=== PATIENT | male | born 1990 | race Caucasian/White ===

== ENCOUNTER 2019-01-09 20:21 | Inpatient (IN) | payer BC, OTHER ==
[2019-01-09] MEDS ORDERED: Thiamine 100 MG in Sodium Chloride 0.9% 100 ML IV ONE (21:03)
--- NOTE | 2019-01-09 21:06 | EDM.PDOCBH ---
ED HPI GENERAL MEDICAL PROBLEM - General Chief Complaint: Drug or Alcohol Abuse Stated Complaint: TOO MUCH ALCOHOL Time Seen by Provider: 01/09/19 20:32 Source of Information: Reports: Patient, Family (), RN Notes Reviewed History Limitations: Reports: No Limitations - History of Present Illness INITIAL COMMENTS - FREE TEXT/NARRATIVE: The patient states that he is a heavy drinker, and would like to stop. He states that he has been drinking 2 fifths of hard alcohol (the equivalent of 34 drinks per day) daily for more than 1.5 years, including today. His last drink was around 19:45 this evening. He states that his last period of sobriety ended about 1.5 years ago, after being sober for about one year. He states that he has been to inpatient treatment twice, most recently about 4 years ago, for 6 months, remaining sober for about 3 months. He states that he has never gone to outpatient treatment. He states that he has never been hospitalized secondary to his alcohol use, and denies having any legal troubles. It is unclear if he has suffered social problems because of his drinking, but he states that he quit his job today, because he simply could not do it anymore - the patient performed maintenance. The patient states that he believes that he is having alcohol withdrawal symptoms, because he is feeling hot and cold, quivering, tachypneic, and generally weak. He states that he had nausea and emesis this morning, but he has been able to drink alcohol throughout the remainder of today. He states that he has not had a bowel movement in about 3 days. Here in the ED, the patient's BP is found to be elevated at 161/102, with a heart rate slightly elevated at 101, and a respiratory rate elevated at 28. His oxygen saturation is 100% on room air. The patient does not have a PCP. Generalized Pain Score (Numeric/FACES): 8 - Related Data Allergies Allergy/AdvReac Type Severity Reaction Status Date / Time No Known Allergies Allergy Verified 01/09/19 20:31 Home Meds: Home Meds . [No Known Home Meds] 01/09/19 [History] Past Medical History Genitourinary History: Reports: Renal Calculus Psychiatric History: Reports: Addiction (alcohol), Anxiety (untreated), Depression (untreated) Social & Family History - Tobacco Use Smoking Status *Q: Current Every Day Smoker Years of Tobacco use: 12 Packs/Tins Daily: 0.1 Packs/Tins Daily Comment: Down from 2 ppd - Caffeine Use Caffeine Use: Reports: Coffee - Alcohol Use Alcohol Use History: Yes Days Per Week of Alcohol Use: 7 Number of Drinks Per Day: 34 Total Drinks Per Week: 238 Date of Last Drink: 01/09/19 Time of Last Drink: 19:45 Alcohol Use Frequency: Daily - Recreational Drug Use Recreational Drug Use: Yes Drug Use in Last 12 Months: No Recreational Drug Type: Reports: Benzodiazepines (last used 2013), Heroin (last snorted Oct 2016), LSD (Acid) (last took before 2008), Marijuana/Hashish (last smoked Oct 2016), Methamphetamine (last snorted, smoked Nov 2016), Psilocybin ( Mushrooms) (last took before 2008), Other (see below) (Opioids - last used Nov 2016) - Living Situation & Occupation Living situation: Reports: , with Spouse, with Family (1 child) Occupation: Unemployed ED ROS GENERAL - Review of Systems Review Of Systems: ROS reveals no pertinent complaints other than HPI. ED EXAM, BEHAVIORAL HEALTH - Physical Exam Exam: See Below Exam Limited By: No Limitations General Appearance: Alert, WD/WN, No Apparent Distress Eye Exam: Bilateral Eye: EOMI, Normal Inspection Ears: Normal External Exam, Hearing Grossly Normal Nose: Normal Inspection Throat/Mouth: Normal Inspection, Normal Lips, Normal Voice, No Airway Compromise Head: Atraumatic, Normocephalic Neck: Normal Inspection, Full Range of Motion Respiratory/Chest: No Respiratory Distress, Lungs Clear, Normal Breath Sounds, No Accessory Muscle Use Cardiovascular: Normal Peripheral Pulses, No Edema, No Gallop, No JVD, No Murmur , No Rub, Tachycardia (regular) GI/Abdominal: Normal Bowel Sounds, Soft, Non-Tender, No Organomegaly, No Distention, No Abnormal Bruit, No Mass (Male) Exam: Deferred Rectal (Males) Exam: Deferred Back Exam: Normal Inspection, Full Range of Motion, NT Extremities: Normal Inspection, Normal Range of Motion, No Pedal Edema, Normal Capillary Refill Neurological: Alert, Normal Cognition, No Motor/Sensory Deficits, Oriented x 3 Psychiatric: Other (Anxious) Skin Exam: Warm, Intact, Normal color, No rash, Diaphoretic EKG INTERPRETATION EKG Date: 01/09/19 Time: 21:15 Rhythm: Other (Sinus tachycardia) Rate (Beats/Min): 100 [place]: Normal P-Wave: Enlarged (LAE) QRS: Normal ST-T: Normal QT: Prolonged (QTc 480 ms) Comparison: NA - No Prior EKG COURSE, BEHAVIORAL HEALTH COMP - Course Vital Signs: Last Vital Signs Temp 37.2 C 01/10/19 01:00 Pulse 106 H 01/10/19 01:00 Resp 22 H 01/10/19 01:00 BP 130/71 01/10/19 01:00 Pulse Ox 96 01/10/19 01:00 Orthostatic Blood Pressure [ 114/76 Standing] Orthostatic Blood Pressure [ 122/78 Sitting] Orthostatic Blood Pressure [ 127/68 Supine] Orders, Labs, Meds: Active Orders 24 hr Category Date Time Status Chest 2V [CR] Stat Exams 01/09/19 20:59 Taken Sodium Chloride 0.9% [Normal Saline] 1,000 ml Med 01/09/19 21:00 Active IV ASDIRECTED Medication Orders Albuterol/Ipratropium (Duoneb 3.0-0.5 Mg/3 Ml) 3 ml NEB Q4H PRN PRN Reason: Shortness Of Breath/wheezing Bisacodyl (Dulcolax) 5 mg PO DAILY PRN PRN Reason: Constipation Chlordiazepoxide HCl (Librium) 50 mg PO Q8H PRN PRN Reason: Withdrawal Symptoms Last Admin: 01/10/19 01:43 Dose: 50 mg Clonidine HCl (Catapres) 0.1 mg PO Q4H PRN PRN Reason: Agitation Docusate Sodium (Colace) 100 mg PO BID PRN PRN Reason: Constipation Famotidine (Pepcid) 20 mg PO Q12H SHANTAL Folic Acid (Folic Acid) 1 mg PO DAILY SHANTAL Stop: 01/12/19 09:01 Haloperidol Lactate (Haldol) 2 mg IM Q4H PRN PRN Reason: Agitation Hydralazine HCl (Apresoline) 20 mg IVPUSH Q4H PRN PRN Reason: Hypertension Hydromorphone HCl (Dilaudid) 0.25 mg IVPUSH Q2H PRN PRN Reason: Pain (severe 7-10) Last Admin: 01/10/19 02:38 Dose: 0.25 mg Sodium Chloride (Normal Saline) 1,000 mls @ 150 mls/hr IV ASDIRECTED [facility] Last Admin: 01/09/19 21:27 Dose: 150 mls/hr Lorazepam (Ativan) 2 mg IVPUSH Q4H PRN PRN Reason: Seizures Lorazepam (Ativan) 1 - 3 mg IVPUSH ASDIRECTED PRN; Protocol PRN Reason: Withdrawal Symptoms Last Admin: 01/10/19 02:39 Dose: 3 mg Admin: 01/10/19 02:18 Dose: 2 mg Metoprolol Tartrate (Lopressor) 5 mg IVPUSH Q4H PRN PRN Reason: Tachycardia Miscellaneous Information (Remove Patch) 1 ea TRDERM DAILY PRN PRN Reason: patch removal Multivitamins (Thera) 1 each PO DAILY [facility] Stop: 01/13/19 09:01 Nicotine (Habitrol) 21 mg TRDERM DAILY PRN PRN Reason: Nicotine Dependence Last Admin: 01/10/19 00:55 Dose: 21 mg Ondansetron HCl (Zofran) 4 mg IV Q6H PRN PRN Reason: Nausea/Vomiting Oxycodone HCl (Oxycodone) 5 mg PO Q4H PRN PRN Reason: Pain (moderate 4-6) Polyethylene Glycol (Miralax) 17 gm PO DAILY PRN PRN Reason: Constipation Potassium Chloride (Pharmacy To Dose - Potassium Replacement) 1 dose .XX ASDIRECTED [facility] Potassium Chloride (Klor-Con M20) 40 meq PO Q4H [facility] Stop: 01/10/19 05:01 Last Admin: 01/10/19 01:21 Dose: 40 meq Quetiapine Fumarate (Seroquel) 50 mg PO BEDTIME [facility] Senna/Docusate Sodium (Senna Plus) 1 tab PO BID PRN PRN Reason: Constipation Thiamine HCl (Vitamin B-1) 100 mg PO DAILY [facility] Stop: 01/13/19 09:01 Topiramate (Topamax) 25 mg PO BID [facility] Laboratory Tests 01/09/19 01/09/19 01/09/19 Range/Units 21:13 21:13 21:13 WBC 5.32 (4.23-9.07) K/mm3 RBC 4.97 (4.63-6.08) M/mm3 Hgb 15.9 (13.7-17.5) gm/L Hct 45.9 (40.1-51.0) % MCV 92.4 H (79.0-92.2) fl MCH 32.0 (25.7-32.2) pg MCHC 34.6 (32.2-35.5) g/dl RDW Std Deviation 42.8 (35.1-43.9) fL Plt Count 170 (163-337) K/mm3 MPV 8.2 L (9.4-12.3) fl Neutrophils % (Manual) 52 (40-60) % Band Neutrophils % 0 (0-10) % Lymphocytes % (Manual) 36 (20-40) % Atypical Lymphs % 0 % Monocytes % (Manual) 11 H (2-10) % Eosinophils % (Manual) 1 (0.8-7.0) % Basophils % (Manual) 0 L (0.2-1.2) Platelet Estimate Adequate RBC Morph Comment Normal Sodium 143 (136-145) mEq/L Potassium 3.4 L (3.5-5.1) mEq/L Chloride 102 (98-107) mEq/L Carbon Dioxide 18 L (21-32) mEq/L Anion Gap 26.4 H (5-15) BUN 11 (7-18) mg/dL Creatinine 1.1 (0.7-1.3) mg/dL Est Cr Clr Drug Dosing 117.52 mL/min Estimated GFR (MDRD) > 60 (>60) mL/min BUN/Creatinine Ratio 10.0 L (14-18) Glucose 88 (74-106) mg/dL Calcium 9.1 (8.5-10.1) mg/dL Magnesium 1.9 (1.8-2.4) mg/dl Total Bilirubin 0.6 (0.2-1.0) mg/dL AST 109 H (15-37) U/L ALT 113 H (16-63) U/L Alkaline Phosphatase 93 (46-116) U/L Total Protein 8.4 H (6.4-8.2) g/dl Albumin 4.3 (3.4-5.0) g/dl Globulin 4.1 gm/dL Albumin/Globulin Ratio 1.1 (1-2) TSH 3rd Generation 1.658 (0.358-3.74) uIU/mL Urine Color (Yellow) Urine Appearance (Clear) Urine pH (5.0-8.0) Ur Specific [place] (1.005-1.030) Urine Protein (Negative) Urine Glucose (UA) (Negative) Urine Ketones (Negative) Urine Occult Blood (Negative) Urine Nitrite (Negative) Urine Bilirubin (Negative) Urine Urobilinogen (0.2-1.0) Ur Leukocyte Esterase (Negative) Urine RBC (0-5) /hpf Urine WBC (0-5) /hpf Ur Epithelial Cells (0-5) /hpf Urine Bacteria (FEW) /hpf Urine Mucus (FEW) /hpf Salicylates 1.0 L (2.8-20) mg/dL Urine Opiates Screen (GJOMCG=862) Ur Buprenorphine Scrn (CUTOFF=10) Ur Oxycodone Screen (DGR7KA=092) Urine Methadone Screen (IOL0UB=293) Ur Propoxyphene Screen (CSSWAU=775) Acetaminophen 0 L (10-30) ug/mL Ur Barbiturates Screen (DEUSPQ=821) Ur Tricyclics Screen (OWMKSG=279) Ur Phencyclidine Scrn (CUTOFF=25) Ur Amphetamine Screen (IDKKWX=416) U Methamphetamines Scrn (OWRCAI=574) U Benzodiazepines Scrn (KLYDKZ=428) U Cocaine Metab Screen (QXRAEG=276) U Marijuana (THC) Screen (CUTOFF=50) Ethyl Alcohol 0.32 (0.00) gm% 01/09/19 01/09/19 Range/Units 22:50 22:50 WBC (4.23-9.07) K/mm3 RBC (4.63-6.08) M/mm3 Hgb (13.7-17.5) gm/L Hct (40.1-51.0) % MCV (79.0-92.2) fl MCH (25.7-32.2) pg MCHC (32.2-35.5) g/dl RDW Std Deviation (35.1-43.9) fL Plt Count (163-337) K/mm3 MPV (9.4-12.3) fl Neutrophils % (Manual) (40-60) % Band Neutrophils % (0-10) % Lymphocytes % (Manual) (20-40) % Atypical Lymphs % % Monocytes % (Manual) (2-10) % Eosinophils % (Manual) (0.8-7.0) % Basophils % (Manual) (0.2-1.2) Platelet Estimate RBC Morph Comment Sodium (136-145) mEq/L Potassium (3.5-5.1) mEq/L Chloride (98-107) mEq/L Carbon Dioxide (21-32) mEq/L Anion Gap (5-15) BUN (7-18) mg/dL Creatinine (0.7-1.3) mg/dL Est Cr Clr Drug Dosing mL/min Estimated GFR (MDRD) (>60) mL/min BUN/Creatinine Ratio (14-18) Glucose (74-106) mg/dL Calcium (8.5-10.1) mg/dL Magnesium (1.8-2.4) mg/dl Total Bilirubin (0.2-1.0) mg/dL AST (15-37) U/L ALT (16-63) U/L Alkaline Phosphatase (46-116) U/L Total Protein (6.4-8.2) g/dl Albumin (3.4-5.0) g/dl Globulin gm/dL Albumin/Globulin Ratio (1-2) TSH 3rd Generation (0.358-3.74) uIU/mL Urine Color Yellow (Yellow) Urine Appearance Slt cloudy H (Clear) Urine pH 6.5 (5.0-8.0) Ur Specific [place] 1.025 (1.005-1.030) Urine Protein 2+ H (Negative) Urine Glucose (UA) Negative (Negative) Urine Ketones 4+ H (Negative) Urine Occult Blood Negative (Negative) Urine Nitrite Negative (Negative) Urine Bilirubin 1+ H (Negative) Urine Urobilinogen 1.0 (0.2-1.0) Ur Leukocyte Esterase Negative (Negative) Urine RBC 0-5 (0-5) /hpf Urine WBC 0-5 (0-5) /hpf Ur Epithelial Cells 0-5 (0-5) /hpf Urine Bacteria Rare (FEW) /hpf Urine Mucus Many H (FEW) /hpf Salicylates (2.8-20) mg/dL Urine Opiates Screen Negative (IULFOP=818) Ur Buprenorphine Scrn Negative (CUTOFF=10) Ur Oxycodone Screen Negative (DDG8EU=473) Urine Methadone Screen Negative (VOQ3AG=816) Ur Propoxyphene Screen Negative (HPCJQN=601) Acetaminophen (10-30) ug/mL Ur Barbiturates Screen Negative (KKIVFQ=800) Ur Tricyclics Screen Negative (YEFPLZ=950) Ur Phencyclidine Scrn Negative (CUTOFF=25) Ur Amphetamine Screen Negative (MSEKIQ=299) U Methamphetamines Scrn Negative (CYOXZL=604) U Benzodiazepines Scrn Negative (DMRRYX=111) U Cocaine Metab Screen Negative (MLMDQV=761) U Marijuana (THC) Screen Negative (CUTOFF=50) Ethyl Alcohol (0.00) gm% Medications Generic Name Dose Route Start Last Admin Trade Name Freq PRN Reason Stop Dose Admin Albuterol/Ipratropium 3 ml 01/10/19 00:46 Duoneb 3.0-0.5 Mg/3 Ml NEB Q4H PRN Shortness Of Breath/wheezing Bisacodyl 5 mg 01/10/19 00:46 Dulcolax PO DAILY PRN Constipation Chlordiazepoxide HCl 50 mg 01/10/19 01:36 01/10/19 01:43 Librium PO 50 mg Q8H PRN Administration Withdrawal Symptoms Clonidine HCl 0.1 mg 01/10/19 00:51 Catapres PO Q4H PRN Agitation Docusate Sodium 100 mg 01/10/19 00:46 Colace PO BID PRN Constipation Famotidine 20 mg 01/10/19 09:00 Pepcid PO Q12H SHANTAL Folic Acid 1 mg 01/10/19 09:00 Folic Acid PO 01/12/19 09:01 DAILY SHANTAL Haloperidol Lactate 2 mg 01/10/19 00:51 Haldol IM Q4H PRN Agitation Hydralazine HCl 20 mg 01/10/19 00:44 Apresoline IVPUSH Q4H PRN Hypertension Hydromorphone HCl 0.25 mg 01/10/19 00:46 01/10/19 02:38 Dilaudid IVPUSH 0.25 mg Q2H PRN Administration Pain (severe 7-10) Sodium Chloride 1,000 mls @ 150 mls/hr 01/09/19 21:00 01/09/19 21:27 Normal Saline IV 150 mls/hr ASDIRECTED SHANTAL Administration Lorazepam 2 mg 01/10/19 00:44 Ativan IVPUSH Q4H PRN Seizures Lorazepam 1 - 3 mg 01/10/19 02:15 01/10/19 02:39 Ativan IVPUSH 3 mg ASDIRECTED PRN Administration Withdrawal Symptoms Protocol Metoprolol Tartrate 5 mg 01/10/19 00:44 Lopressor IVPUSH Q4H PRN Tachycardia Miscellaneous Information 1 ea 01/10/19 00:50 Remove Patch TRDERM DAILY PRN patch removal Multivitamins 1 each 01/10/19 09:00 Thera PO 01/13/19 09:01 DAILY SHANTAL Nicotine 21 mg 01/10/19 00:44 01/10/19 00:55 Habitrol TRDERM 21 mg DAILY PRN Administration Nicotine Dependence Ondansetron HCl 4 mg 01/10/19 00:46 Zofran IV Q6H PRN Nausea/Vomiting Oxycodone HCl 5 mg 01/10/19 00:46 Oxycodone PO Q4H PRN Pain (moderate 4-6) Polyethylene Glycol 17 gm 01/10/19 00:46 Miralax PO DAILY PRN Constipation Potassium Chloride 1 dose 01/10/19 00:45 Pharmacy To Dose - Potassium Replacement .XX ASDIRECTED SHANTAL Potassium Chloride 40 meq 01/10/19 01:00 01/10/19 01:21 Klor-Con M20 PO 01/10/19 05:01 40 meq Q4H SHANTAL Administration Quetiapine Fumarate 50 mg 01/11/19 21:00 Seroquel PO BEDTIME SHANTAL Senna/Docusate Sodium 1 tab 01/10/19 00:46 Senna Plus PO BID PRN Constipation Thiamine HCl 100 mg 01/10/19 09:00 Vitamin B-1 PO 01/13/19 09:01 DAILY SHANTAL Topiramate 25 mg 01/10/19 09:00 Topamax PO BID SHANTAL Discontinued Medications Generic Name Dose Route Start Last Admin Trade Name Freq PRN Reason Stop Dose Admin Chlordiazepoxide HCl 25 mg 01/10/19 00:51 Librium PO Q8H PRN Withdrawal Symptoms Diphenhydramine HCl 50 mg 01/10/19 01:35 01/10/19 01:45 Benadryl IVPUSH 01/10/19 01:36 50 mg ONETIME ONE Administration Diphenhydramine HCl 50 mg 01/10/19 02:17 01/10/19 02:22 Benadryl IVPUSH 01/10/19 02:18 50 mg ONETIME ONE Administration Thiamine HCl 100 mg/ Sodium 101 mls @ 202 mls/hr 01/09/19 21:03 01/09/19 21: 27 Chloride IV 01/09/19 21:04 202 mls/hr ONETIME ONE Administration Lorazepam 1 - 3 mg 01/10/19 00:44 01/10/19 00:56 Ativan IVPUSH 3 mg Q4H PRN Administration Withdrawal Symptoms Protocol Pantoprazole Sodium 40 mg 01/10/19 00:51 01/10/19 01:22 Protonix Iv IV 01/10/19 00:52 40 mg ONETIME ONE Administration Quetiapine Fumarate 25 mg 01/10/19 00:50 01/10/19 01:43 Seroquel PO 01/10/19 00:51 25 mg NOW STA Administration Quetiapine Fumarate 25 mg 01/10/19 01:37 01/10/19 01:43 Seroquel PO 01/10/19 01:38 25 mg ONETIME ONE Administration Quetiapine Fumarate 25 mg 01/10/19 01:49 01/10/19 01:43 Seroquel PO 01/10/19 01:50 25 mg ONETIME ONE Administration Topiramate 25 mg 01/10/19 00:49 01/10/19 01:21 Topamax PO 01/10/19 00:50 25 mg BEDTIME ONE Administration Medical Clearance: 01/09/19 21:03 Because the patient is a chronic daily alcoholic, he is at somewhat of an increased risk of developing DTs, although factors in his favor include no prior history of DTs or alcohol-related seizures, age under 30 years, and no comorbid condition, such as pneumonia, at least as far as we know at this time. Before I even discussed what we can and cannot do for the patient, I want to make sure that he is medically stable, therefore I have ordered orthostatics, an ECG, a baseline chest x-ray, blood work, and a urinalysis with urine drug screen. The patient will receive IV fluid and IV thiamine, to be modified as needed. The patient states that he is not currently nauseated, however, if he does develop nausea, we will treat that accordingly. 01/09/19 21:49 The patient is not orthostatic. 01/09/19 21:51 2-view chest radiograph appears to be grossly normal. The cardiac silhouette is within normal limits. No pulmonary vascular congestion. No pleural effusions. No focal infiltrate. No pneumothorax. Formal read per the Radiologist pending. 01/10/19 00:04 Test results discussed with the patient and his . The patient's alcohol level returned elevated at 0.32. His bicarbonate level is depressed at 18, with an anion gap of 26.4. The remainder of his workup was unremarkable. I recommended admission to the hospital to monitor for signs and symptoms of alcohol withdrawal, and treat accordingly. The patient agreed. Case discussed with Dr. Gonzales at 23:57. He asked that I call Dr. Benson for the admission. Case discussed with Dr. Benson at 23:59. Dr. Benson explained that he will be going off service in the morning, therefore it does not make sense for him to accept the patient tonight. He asked that I admit the patient to Dr. Gonzales. Case again discussed with Dr. Gonzales at 00:02. He accepted the patient for admission to the ICU. Departure - Departure Time of Disposition: 00:05 Disposition: Admitted As Inpatient 68 Condition: Fair Clinical Impression: Alcohol intoxication, Chronic alcohol use, High anion gap metabolic acidosis - Discharge Information *PRESCRIPTION DRUG MONITORING PROGRAM REVIEWED*: Not Applicable *COPY OF PRESCRIPTION DRUG MONITORING REPORT IN PATIENT NASRIN: Not Applicable - My Orders Last 24 Hours: My Active Orders 01/09/19 20:59 Chest 2V [CR] Stat 01/09/19 21:00 Sodium Chloride 0.9% [Normal Saline] 1,000 ml IV ASDIRECTED - Assessment/Plan Last 24 Hours: My Active Orders 01/09/19 20:59 Chest 2V [CR] Stat 01/09/19 21:00 Sodium Chloride 0.9% [Normal Saline] 1,000 ml IV ASDIRECTED
[2019-01-09] MEDS: Sodium Chloride 0.9% 1,000 ML IV SCH (21:27)
[2019-01-09 22:18] LABS: ACETAMINOPHEN 0 ug/mL (10-30)
[2019-01-10] MEDS ORDERED: LORazepam 2 MG/ML SDV IVPUSH PRN ×2 (00:44)
[2019-01-10] MEDS ORDERED: hydrALAZINE 20 MG/ML SDV IVPUSH PRN (00:44)
[2019-01-10] MEDS ORDERED: Bisacodyl 5 MG Tab PO PRN (00:46)
[2019-01-10] MEDS ORDERED: Polyethylene Glycol 3350 Powder 17 GM Packet PO PRN (00:46)
[2019-01-10] MEDS ORDERED: HYDROmorphone 1 MG/ML Syringe IVPUSH PRN (00:46)
[2019-01-10] MEDS ORDERED: Docusate Sodium 100 MG Cap PO PRN (00:46)
[2019-01-10] MEDS ORDERED: oxyCODONE 5 MG Tab PO PRN (00:46)
[2019-01-10] MEDS ORDERED: Ondansetron 4 MG/2 ML SDV IV PRN (00:46)
[2019-01-10] MEDS ORDERED: Albuterol/Ipratropium 3.0-0.5 MG/3 ML Neb Soln NEB PRN (00:46)
[2019-01-10] MEDS ORDERED: Topiramate 25 MG Tab PO ONE (00:49)
[2019-01-10] MEDS ORDERED: QUEtiapine 25 MG Tab PO STA (00:50)
[2019-01-10] MEDS ORDERED: chlordiazePOXIDE 25 MG Cap PO PRN (00:51)
[2019-01-10] MEDS ORDERED: Pantoprazole 40 MG Vial IV ONE (00:51)
[2019-01-10] MEDS ORDERED: Haloperidol Lactate 5 MG/ML SDV IM PRN (00:51)
[2019-01-10] MEDS: Nicotine 21 MG/24 Hr Patch TRDERM PRN (00:55)
[2019-01-10] MEDS ORDERED: Potassium Chloride 20 MEQ Tab.ER PO SCH (01:00)
[2019-01-10] MEDS ORDERED: diphenhydrAMINE 50 MG/ML SDV IVPUSH ONE ×2 (01:35→02:17)
[2019-01-10] MEDS ORDERED: QUEtiapine 25 MG Tab PO ONE ×3 (01:37→21:00)
--- NOTE | 2019-01-10 01:40 | PCM.HP ---
H&P History of Present Illness - General Date of Service: 01/10/19 Admit Problem/Dx: Admission Diagnosis/Problem Admission Diagnosis/Problem Chronic alcohol abuse Source of Information: Patient, Family, Old Records, Provider, RN Notes Reviewed History Limitations: Reports: Intoxication - History of Present Illness Initial Comments - Free Text/Narative: This is a 28 yo white male with past medical hx of ETOH Use/Dependence, Substance Abuse, Anxiety, Depression and Hx/o Renal Stone who comes in for alcohol detoxification. He reports feeling hot and cold, quivering, increased respiratory rate, reduced appetite, abdominal soreness, and generalized weakness. He also had nausea and emesis this morning. He reports no bowel movement in 3 days. Patient drinks about 1L of whiskey a day for about 1-2 years now. However he has been drinking more than usual due to job related issues and increased life stressors (did not specify it). His last drink was last evening. He denies having been to chemical inpatient treatment except for heroin abuse in 2007 at [facility] in [place]. At bedside during examination, he has obvious tremors and reports visual hallucinations. He also admits to having suicidal thought but did not mention his means or methods of carrying out his plans. His thinks he is severely depressed. His initial work up in ED shows a CBC remarkable for MCV of 92.4, MPV of 8.2, and Monocytes of 11%. His chemistry is significant for K of 3.4, CO2 of 18, AG of 26.4, AST of 109, ALT of 113, and Total Protein of 8.4. His UA is suggestive of UTI. His UDS is positive for Salicylates of 1. His ASHKAN is 0.32. Patient is being admitted for etoh withdrawal symptoms. He is DNR/DNI. Generalized Pain Score (Numeric/FACES): 8 - Related Data Allergies/Adverse Reactions: Allergies Allergy/AdvReac Type Severity Reaction Status Date / Time No Known Allergies Allergy Verified 01/09/19 20:31 Home Medications: Home Meds . [No Known Home Meds] 01/09/19 [History] Past Medical History - Past Health History Medical/Surgical History: Denies Medical/Surgical History Gastrointestinal History: Reports: GERD Other Gastrointestinal History: stomach ulcer Genitourinary History: Reports: Renal Calculus Psychiatric History: Reports: Addiction, Anxiety, Depression Social & Family History - Family History Family Medical History: Noncontributory - Tobacco Use Smoking Status *Q: Current Every Day Smoker Years of Tobacco use: 10 Packs/Tins Daily: 1 - Caffeine Use Caffeine Use: Reports: Coffee - Alcohol Use Days Per Week of Alcohol Use: 7 Number of Drinks Per Day: 32 Total Drinks Per Week: 224 Date of Last Drink: 01/09/19 Time of Last Drink: 19:30 - Recreational Drug Use Recreational Drug Use: Yes Drug Use in Last 12 Months: No Recreational Drug Type: Reports: Heroin, Methamphetamine Recreational Drug Last Use: 2.5 years ago - Living Situation & Occupation Living situation: Reports: , with Spouse, with Family (1 child) Occupation: Unemployed H&P Review of Systems - Review of Systems: Review Of Systems: See Below General: Denies: Fever, Chills, Fatigue HEENT: Reports: No Symptoms Pulmonary: Denies: Shortness of Breath Cardiovascular: Reports: Palpitations. Denies: Chest Pain Gastrointestinal: Reports: Decreased Appetite, Nausea, Vomiting, Other ( abdominal soreness). Denies: Abdominal Pain Genitourinary: Reports: No Symptoms Musculoskeletal: Reports: No Symptoms Skin: Denies: Cyanosis, Mottled, Diaphoresis, Bruising, Erythema Psychiatric: Reports: Depression, Anxiety, Suicidal Ideation, Hallucinations ( Visual). Denies: Confusion Neurological: Reports: Tremors, Difficulty Walking, Gait Disturbance. Denies: Dizziness, Numbness, Tingling Hematologic/Lymphatic: Reports: No Symptoms Exam - Exam Exam: See Below - Vital Signs Vital Signs: Last Vital Signs Temp 37.2 C 01/09/19 20:32 Pulse 101 H 01/09/19 20:32 Resp 28 H 01/09/19 20:32 BP 161/102 H 01/09/19 20:32 Pulse Ox 100 01/09/19 20:32 Orthostatic Blood Pressure [ 114/76 Standing] Orthostatic Blood Pressure [ 122/78 Sitting] Orthostatic Blood Pressure [ 127/68 Supine] Weight: 94.801 kg - Exam General: Alert, Cooperative, Mild Distress, Lethargic, Other (smells alcohol) HEENT: Conjunctiva Clear, Hearing Intact, Mucosa Moist & Pal[place], Normal Nasal Septum, Posterior Pharynx Clear, Pupils Equal. No: EOMI Neck: Supple, Trachea Midline Lungs: Clear to Auscultation, Normal Respiratory Effort Cardiovascular: Tachycardia GI/Abdominal Exam: Normal Bowel Sounds, Soft, Non-Tender, No Organomegaly, No Distention, No Abnormal Bruit (Male) Exam: Deferred Rectal (Males) Exam: Deferred Back Exam: Normal Inspection, Full Range of Motion Extremities: Normal Inspection, Normal Range of Motion, Non-Tender, No Pedal Edema, Normal Capillary Refill Peripheral Pulses: 3+: Posterior Tibial (L), Posterior Tibial (R), Dorsalis Pedis (L), Dorsalis Pedis (R) Skin: Warm, Dry, Intact Neuro Extensive - Mental Status: Oriented x3, Memory Intact, Slow Response to Commands Neuro Extensive - Motor, Sensory, Reflexes: CN II-XII Intact (limited due to intoxiction and tremors), Abnormal Gait Psychiatric: Anxious, Hallucinations, Withdrawal Symptoms. No: Agitated - Patient Data Lab Results Last 24 hrs: Laboratory Results - last 24 hr 01/09/19 01/09/19 01/09/19 Range/Units 21:13 21:13 21:13 WBC 5.32 (4.23-9.07) K/mm3 RBC 4.97 (4.63-6.08) M/mm3 Hgb 15.9 (13.7-17.5) gm/L Hct 45.9 (40.1-51.0) % MCV 92.4 H (79.0-92.2) fl MCH 32.0 (25.7-32.2) pg MCHC 34.6 (32.2-35.5) g/dl RDW Std Deviation 42.8 (35.1-43.9) fL Plt Count 170 (163-337) K/mm3 MPV 8.2 L (9.4-12.3) fl Neutrophils % (Manual) 52 (40-60) % Band Neutrophils % 0 (0-10) % Lymphocytes % (Manual) 36 (20-40) % Atypical Lymphs % 0 % Monocytes % (Manual) 11 H (2-10) % Eosinophils % (Manual) 1 (0.8-7.0) % Basophils % (Manual) 0 L (0.2-1.2) Platelet Estimate Adequate RBC Morph Comment Normal Sodium 143 (136-145) mEq/L Potassium 3.4 L (3.5-5.1) mEq/L Chloride 102 (98-107) mEq/L Carbon Dioxide 18 L (21-32) mEq/L Anion Gap 26.4 H (5-15) BUN 11 (7-18) mg/dL Creatinine 1.1 (0.7-1.3) mg/dL Est Cr Clr Drug Dosing 117.52 mL/min Estimated GFR (MDRD) > 60 (>60) mL/min BUN/Creatinine Ratio 10.0 L (14-18) Glucose 88 (74-106) mg/dL Calcium 9.1 (8.5-10.1) mg/dL Magnesium 1.9 (1.8-2.4) mg/dl Total Bilirubin 0.6 (0.2-1.0) mg/dL AST 109 H (15-37) U/L ALT 113 H (16-63) U/L Alkaline Phosphatase 93 (46-116) U/L Total Protein 8.4 H (6.4-8.2) g/dl Albumin 4.3 (3.4-5.0) g/dl Globulin 4.1 gm/dL Albumin/Globulin Ratio 1.1 (1-2) TSH 3rd Generation 1.658 (0.358-3.74) uIU/mL Urine Color (Yellow) Urine Appearance (Clear) Urine pH (5.0-8.0) Ur Specific [place] (1.005-1.030) Urine Protein (Negative) Urine Glucose (UA) (Negative) Urine Ketones (Negative) Urine Occult Blood (Negative) Urine Nitrite (Negative) Urine Bilirubin (Negative) Urine Urobilinogen (0.2-1.0) Ur Leukocyte Esterase (Negative) Urine RBC (0-5) /hpf Urine WBC (0-5) /hpf Ur Epithelial Cells (0-5) /hpf Urine Bacteria (FEW) /hpf Urine Mucus (FEW) /hpf Salicylates 1.0 L (2.8-20) mg/dL Urine Opiates Screen (DHKFDN=187) Ur Buprenorphine Scrn (CUTOFF=10) Ur Oxycodone Screen (AEN6EP=973) Urine Methadone Screen (IVN9PY=050) Ur Propoxyphene Screen (IJNBOK=285) Acetaminophen 0 L (10-30) ug/mL Ur Barbiturates Screen (HUKSIP=256) Ur Tricyclics Screen (BGWABI=119) Ur Phencyclidine Scrn (CUTOFF=25) Ur Amphetamine Screen (ULXOJI=597) U Methamphetamines Scrn (YIDHLA=307) U Benzodiazepines Scrn (RTJVPB=423) U Cocaine Metab Screen (NTFUSV=594) U Marijuana (THC) Screen (CUTOFF=50) Ethyl Alcohol 0.32 (0.00) gm% 01/09/19 01/09/19 Range/Units 22:50 22:50 WBC (4.23-9.07) K/mm3 RBC (4.63-6.08) M/mm3 Hgb (13.7-17.5) gm/L Hct (40.1-51.0) % MCV (79.0-92.2) fl MCH (25.7-32.2) pg MCHC (32.2-35.5) g/dl RDW Std Deviation (35.1-43.9) fL Plt Count (163-337) K/mm3 MPV (9.4-12.3) fl Neutrophils % (Manual) (40-60) % Band Neutrophils % (0-10) % Lymphocytes % (Manual) (20-40) % Atypical Lymphs % % Monocytes % (Manual) (2-10) % Eosinophils % (Manual) (0.8-7.0) % Basophils % (Manual) (0.2-1.2) Platelet Estimate RBC Morph Comment Sodium (136-145) mEq/L Potassium (3.5-5.1) mEq/L Chloride (98-107) mEq/L Carbon Dioxide (21-32) mEq/L Anion Gap (5-15) BUN (7-18) mg/dL Creatinine (0.7-1.3) mg/dL Est Cr Clr Drug Dosing mL/min Estimated GFR (MDRD) (>60) mL/min BUN/Creatinine Ratio (14-18) Glucose (74-106) mg/dL Calcium (8.5-10.1) mg/dL Magnesium (1.8-2.4) mg/dl Total Bilirubin (0.2-1.0) mg/dL AST (15-37) U/L ALT (16-63) U/L Alkaline Phosphatase (46-116) U/L Total Protein (6.4-8.2) g/dl Albumin (3.4-5.0) g/dl Globulin gm/dL Albumin/Globulin Ratio (1-2) TSH 3rd Generation (0.358-3.74) uIU/mL Urine Color Yellow (Yellow) Urine Appearance Slt cloudy H (Clear) Urine pH 6.5 (5.0-8.0) Ur Specific [place] 1.025 (1.005-1.030) Urine Protein 2+ H (Negative) Urine Glucose (UA) Negative (Negative) Urine Ketones 4+ H (Negative) Urine Occult Blood Negative (Negative) Urine Nitrite Negative (Negative) Urine Bilirubin 1+ H (Negative) Urine Urobilinogen 1.0 (0.2-1.0) Ur Leukocyte Esterase Negative (Negative) Urine RBC 0-5 (0-5) /hpf Urine WBC 0-5 (0-5) /hpf Ur Epithelial Cells 0-5 (0-5) /hpf Urine Bacteria Rare (FEW) /hpf Urine Mucus Many H (FEW) /hpf Salicylates (2.8-20) mg/dL Urine Opiates Screen Negative (CDTXBU=022) Ur Buprenorphine Scrn Negative (CUTOFF=10) Ur Oxycodone Screen Negative (KTL3NK=973) Urine Methadone Screen Negative (XQT3PK=338) Ur Propoxyphene Screen Negative (YIUCRF=269) Acetaminophen (10-30) ug/mL Ur Barbiturates Screen Negative (AAFOPB=486) Ur Tricyclics Screen Negative (KAXNFM=219) Ur Phencyclidine Scrn Negative (CUTOFF=25) Ur Amphetamine Screen Negative (SOIWWW=200) U Methamphetamines Scrn Negative (ISGDFI=227) U Benzodiazepines Scrn Negative (RIMNNU=823) U Cocaine Metab Screen Negative (JODMYG=371) U Marijuana (THC) Screen Negative (CUTOFF=50) Ethyl Alcohol (0.00) gm% Result Diagrams: 01/10/19 05:15 01/10/19 05:15 Problem List Initiated/Reviewed/Updated: Yes Orders Last 24hrs: Active Orders 24 hr Category Date Time Status Admission Status [Patient Status] [ADT] Routine ADT 01/10/19 00:25 Active Antiembolic Devices [RC] PER UNIT ROUTINE Care 01/10/19 00:47 Active CIWAA Assessment [RC] Q15M Care 01/10/19 00:51 Active CIWAA Assessment [RC] Q1H Care 01/10/19 00:51 Active CIWAA Assessment [RC] Q30M Care 01/10/19 00:51 Active Cardiac Monitoring [RC] . DIRECTED Care 01/10/19 00:46 Active EKG Documentation Completion [RC] STAT Care 01/09/19 20:58 Active Height and Weight [RC] DAILY Care 01/10/19 00:46 Active Intake and Output [RC] QSHIFT Care 01/10/19 00:46 Active Notify Provider Consults [RC] ASDIRECTED Care 01/10/19 00:48 Active Notify Provider [RC] PRN Care 01/10/19 00:51 Active Orthostatic Vital Signs [RC] STAT Care 01/09/19 21:05 Active Oxygen Therapy [RC] PRN Care 01/10/19 00:46 Active RT Aerosol Therapy [RC] ASDIRECTED Care 01/10/19 00:47 Active Up With Assistance [RC] .ASDIRECTED Care 01/10/19 00:46 Active Up ad Rula [RC] .ASDIRECTED Care 01/10/19 00:46 Active VTE/DVT Education [RC] PER UNIT ROUTINE Care 01/10/19 00:46 Active Vital Signs [RC] Q4HR Care 01/10/19 00:46 Active Consult to Case Management/Facilities Engineer [CONS] Cons 01/10/19 00:46 Active Routine Consult to Physician [CONS] Routine Cons 01/10/19 00:46 Active Consult to Spiritual Care [CONS] Routine Cons 01/10/19 00:46 Active Respiratory Care Assess and Treatment [CONS] Routine Cons 01/10/19 00:46 Active Regular Diet [DIET] Diet 01/10/19 Breakfast Active Chest 2V [CR] Stat Exams 01/09/19 20:59 Taken BASIC METABOLIC PANEL,BMP [CHEM] AM Lab 01/10/19 05:11 Ordered BASIC METABOLIC PANEL,BMP [CHEM] AM Lab 01/11/19 05:11 Ordered BASIC METABOLIC PANEL,BMP [CHEM] AM Lab 01/12/19 05:11 Ordered BASIC METABOLIC PANEL,BMP [CHEM] AM Lab 01/13/19 05:11 Ordered CBC WITH AUTO DIFF [HEME] AM Lab 01/10/19 05:11 Ordered MAGNESIUM [CHEM] AM Lab 01/10/19 05:11 Ordered MAGNESIUM [CHEM] AM Lab 01/11/19 05:11 Ordered MAGNESIUM [CHEM] AM Lab 01/12/19 05:11 Ordered MAGNESIUM [CHEM] AM Lab 01/13/19 05:11 Ordered Albuterol/Ipratropium [DuoNeb 3.0-0.5 MG/3 ML] Med 01/10/19 00:46 Active 3 ml NEB Q4H PRN Bisacodyl [Dulcolax] Med 01/10/19 00:46 Active 5 mg PO DAILY PRN Docusate Sodium [Colace] Med 01/10/19 00:46 Active 100 mg PO BID PRN Docusate Sodium/Sennosides [Senna Plus] Med 01/10/19 00:46 Active 1 tab PO BID PRN Famotidine [Pepcid] Med 01/10/19 09:00 Active 20 mg PO Q12H Folic Acid Med 01/10/19 09:00 Active 1 mg PO DAILY HYDROmorphone [Dilaudid] Med 01/10/19 00:46 Active 0.25 mg IVPUSH Q2H PRN Haloperidol Lactate [Haldol] Med 01/10/19 00:51 Active 2 mg IM Q4H PRN LORazepam [Ativan] Med 01/10/19 00:44 Active 1 - 3 mg IVPUSH Q4H PRN LORazepam [Ativan] Med 01/10/19 00:44 Active 2 mg IVPUSH Q4H PRN Metoprolol Tartrate [Lopressor] Med 01/10/19 00:44 Active 5 mg IVPUSH Q4H PRN Multivitamins,Therapeutic [Thera] Med 01/10/19 09:00 Active 1 each PO DAILY Nicotine [Habitrol] Med 01/10/19 00:44 Active 21 mg TRDERM DAILY PRN Ondansetron [Zofran] Med 01/10/19 00:46 Active 4 mg IV Q6H PRN Pharmacy to Dose - Potassium R [Pharmacy to Dose - Med 01/10/19 00:45 Pending Potassium Replacement] 1 dose .XX ASDIRECTED Polyethylene Glycol 3350 [MiraLAX] Med 01/10/19 00:46 Active 17 gm PO DAILY PRN Potassium Chloride [Klor-Con M20] Med 01/10/19 01:00 Active 40 meq PO Q4H QUEtiapine [SEROquel] Med 01/11/19 21:00 Active 50 mg PO BEDTIME Remove Patch Med 01/10/19 00:50 Active 1 ea TRDERM DAILY PRN Sodium Chloride 0.9% [Normal Saline] 1,000 ml Med 01/09/19 21:00 Active IV ASDIRECTED Thiamine [Vitamin B-1] Med 01/10/19 09:00 Active 100 mg PO DAILY Topiramate [Topamax] Med 01/10/19 09:00 Active 25 mg PO BID chlordiazePOXIDE [Librium] Med 01/10/19 01:36 Ordered 50 mg PO Q8H PRN cloNIDine [Catapres] Med 01/10/19 00:51 Active 0.1 mg PO Q4H PRN hydrALAZINE [Apresoline] Med 01/10/19 00:44 Active 20 mg IVPUSH Q4H PRN oxyCODONE Med 01/10/19 00:46 Active 5 mg PO Q4H PRN One To One Therapy [BH] Routine Oth 01/10/19 01:20 Ordered Seizure Precautions [OM.PC] Routine Oth 01/10/19 00:51 Ordered Sequential Compression Device [OM.PC] Per Unit Routine Oth 01/10/19 00:46 Ordered Resuscitation Status Routine Resus Stat 01/10/19 00:48 Ordered Medication Orders Albuterol/Ipratropium (Duoneb 3.0-0.5 Mg/3 Ml) 3 ml NEB Q4H PRN PRN Reason: Shortness Of Breath/wheezing Bisacodyl (Dulcolax) 5 mg PO DAILY PRN PRN Reason: Constipation Chlordiazepoxide HCl (Librium) 50 mg PO Q8H PRN PRN Reason: Withdrawal Symptoms Clonidine HCl (Catapres) 0.1 mg PO Q4H PRN PRN Reason: Agitation Docusate Sodium (Colace) 100 mg PO BID PRN PRN Reason: Constipation Famotidine (Pepcid) 20 mg PO Q12H SHANTAL Folic Acid (Folic Acid) 1 mg PO DAILY SHANTAL Stop: 01/12/19 09:01 Haloperidol Lactate (Haldol) 2 mg IM Q4H PRN PRN Reason: Agitation Hydralazine HCl (Apresoline) 20 mg IVPUSH Q4H PRN PRN Reason: Hypertension Hydromorphone HCl (Dilaudid) 0.25 mg IVPUSH Q2H PRN PRN Reason: Pain (severe 7-10) Sodium Chloride (Normal Saline) 1,000 mls @ 150 mls/hr IV ASDIRECTED [facility] Last Admin: 01/09/19 21:27 Dose: 150 mls/hr Lorazepam (Ativan) 2 mg IVPUSH Q4H PRN PRN Reason: Seizures Lorazepam (Ativan) 1 - 3 mg IVPUSH Q4H PRN; Protocol PRN Reason: Withdrawal Symptoms Last Admin: 01/10/19 00:56 Dose: 3 mg Metoprolol Tartrate (Lopressor) 5 mg IVPUSH Q4H PRN PRN Reason: Tachycardia Miscellaneous Information (Remove Patch) 1 ea TRDERM DAILY PRN PRN Reason: patch removal Multivitamins (Thera) 1 each PO DAILY [facility] Stop: 01/13/19 09:01 Nicotine (Habitrol) 21 mg TRDERM DAILY PRN PRN Reason: Nicotine Dependence Last Admin: 01/10/19 00:55 Dose: 21 mg Ondansetron HCl (Zofran) 4 mg IV Q6H PRN PRN Reason: Nausea/Vomiting Oxycodone HCl (Oxycodone) 5 mg PO Q4H PRN PRN Reason: Pain (moderate 4-6) Polyethylene Glycol (Miralax) 17 gm PO DAILY PRN PRN Reason: Constipation Potassium Chloride (Pharmacy To Dose - Potassium Replacement) 1 dose .XX ASDIRECTED [facility] Potassium Chloride (Klor-Con M20) 40 meq PO Q4H [facility] Stop: 01/10/19 05:01 Last Admin: 01/10/19 01:21 Dose: 40 meq Quetiapine Fumarate (Seroquel) 50 mg PO BEDTIME [facility] Senna/Docusate Sodium (Senna Plus) 1 tab PO BID PRN PRN Reason: Constipation Thiamine HCl (Vitamin B-1) 100 mg PO DAILY [facility] Stop: 01/13/19 09:01 Topiramate (Topamax) 25 mg PO BID [facility] Assessment/Plan Comment:: Assessment/Plan: Acute: ETOH Withdrawal Symptoms - Carries a hx/o heady drinking - Drinks at least 1L of whiskey a day per - Triggers: Job and increased life stressors - ASHKAN is 0.32 - CIWAA score is 21 - Had tremors and visual hallucinations on examinations - SAC and Tele-psych consult when appropriate Depression - Acute on Chronic - Had suicidal thoughts yesterday per - He is not on medications - 1:1 Care - Tele-psych consult Transaminitis - 2/2 ETOH Abuse - Avoid Acetaminophen for now - IV fluids Nicotine Dependence - Smokes < 1ppd down from 2ppd - Nicotine patch daily Hypokalemia - K 3.4 - 2/2 poor intake and GI loss - Replete and monitor Hx/o Substance Abuse - Benzo 2013; Heroin 2016; LSD 2008; Marijuana/Hashish 2016; Meth Nov 2016; Mushrooms before 2008 - Had inpatient chemical rehab in 2007 for heroin addiction in [place] at [facility] Chronic: ETOH Use/Dependence Substance Abuse Anxiety Depression Renal Stone Plan: Admit to ICU for ETOH Detox Routine AM Labs CIWAA Protocol Folic Acid, MVI and Thiamine DVT and GI PPx SW/CM for d/c planning SAC and Tele-psych consult Suicidal/seizure Precaution Additional orders as above Code status: DNR/DNI
[2019-01-10] MEDS: chlordiazePOXIDE 25 MG Cap PO PRN ×2 (01:43→12:06)
[2019-01-10] MEDS: LORazepam 2 MG/ML SDV IVPUSH PRN ×8 (02:18→13:26)
[2019-01-10] MEDS: Sodium Chloride 0.9% 1,000 ML IV SCH ×3 (04:15→17:26)
[2019-01-10] MEDS: cloNIDine 0.1 MG Tab PO PRN ×2 (06:43→20:44)
--- NOTE | 2019-01-10 07:16 | CR ---
Chest: Two views of the chest were obtained. Comparison: No previous chest x-ray. Heart size and mediastinum are normal. Lungs are clear. Bony structures are unremarkable. Impression: 1. Nothing acute is seen on two-view chest x-ray. Diagnostic code #1
[2019-01-10] MEDS ORDERED: Magnesium Sulfate/Water 2 GM in Premix Bag 1 BAG IV ONE (08:00)
--- NOTE | 2019-01-10 08:48 | PCM.SN ---
- Free Text/Narrative Note: Per day nurse, he was up and down all night. His CIWAA is 13 this morning with significant tremors, significant tachycardia and hypertension, as well as confusion. At this point he meets criteria for DT. We will continue current treatment and ordered hartley catheter placement as he is a high fall risk with current clinical status and state of mind. Hold SAC and Tele-psych consultations for now.
[2019-01-10] MEDS ORDERED: Potassium Chloride 20 MEQ Tab.ER PO ONE (09:00)
[2019-01-10] MEDS: Famotidine 20 MG Tab PO SCH ×2 (09:04→20:45)
[2019-01-10] MEDS: Folic Acid 1 MG Tab PO SCH (09:04)
[2019-01-10] MEDS: Multivitamins,Therapeutic Tab PO SCH (09:04)
[2019-01-10] MEDS: Topiramate 25 MG Tab PO SCH ×2 (09:04→20:45)
[2019-01-10] MEDS: Thiamine 100 MG Tab PO SCH (09:05)
--- NOTE | 2019-01-11 07:44 | PCM.PN ---
- General Info Date of Service: 01/11/19 Admission Dx/Problem (Free Text): Admission Diagnosis/Problem Admission Diagnosis/Problem Chronic alcohol abuse Subjective Update: Follow Up Functional Status: Reports: Pain Controlled, Tolerating Diet, Ambulating, Urinating. Denies: New Symptoms - Review of Systems General: Denies: Fever, Weakness, Fatigue, Malaise, Chills HEENT: Reports: No Symptoms Pulmonary: Reports: No Symptoms Cardiovascular: Denies: Chest Pain Gastrointestinal: Denies: Abdominal Pain, Decreased Appetite, Vomiting Genitourinary: Denies: No Symptoms Musculoskeletal: Reports: No Symptoms Skin: Reports: No Symptoms Neurological: Denies: Confusion, Numbness, Gait Disturbance Psychiatric: Denies: Depression, Anxiety, Agitation, Hallucinations Systems Review Comment:: No overnight or acute issues. His rested well last night. His CIWAA score is 0. - Patient Data Vitals - Most Recent: Last Vital Signs Temp 36.9 C 01/11/19 04:00 Pulse 97 01/11/19 05:00 Resp 18 01/11/19 04:00 BP 140/82 01/11/19 04:00 Pulse Ox 99 01/11/19 05:00 Orthostatic Blood Pressure [ 114/76 Standing] Orthostatic Blood Pressure [ 122/78 Sitting] Orthostatic Blood Pressure [ 127/68 Supine] Weight - Most Recent: 94.347 kg I&O - Last 24 Hours: Intake & Output 01/10/19 01/11/19 01/11/19 22:59 06:59 14:59 Intake Total 2334 800 Balance 2334 800 Lab Results Last 24 Hours: Laboratory Results - last 24 hr 01/11/19 Range/Units 05:25 Sodium 133 L (136-145) mEq/L Potassium 3.6 (3.5-5.1) mEq/L Chloride 98 (98-107) mEq/L Carbon Dioxide 22 (21-32) mEq/L Anion Gap 16.6 H (5-15) BUN 7 (7-18) mg/dL Creatinine 0.9 (0.7-1.3) mg/dL Est Cr Clr Drug Dosing 152.64 mL/min Estimated GFR (MDRD) > 60 (>60) mL/min BUN/Creatinine Ratio 7.8 L (14-18) Glucose 89 (74-106) mg/dL Calcium 9.0 (8.5-10.1) mg/dL Magnesium 1.8 (1.8-2.4) mg/dl Med Orders - Current: Current Medications Albuterol/Ipratropium (Duoneb 3.0-0.5 Mg/3 Ml) 3 ml NEB Q4H PRN PRN Reason: Shortness Of Breath/wheezing Bisacodyl (Dulcolax) 5 mg PO DAILY PRN PRN Reason: Constipation Chlordiazepoxide HCl (Librium) 50 mg PO Q8H PRN PRN Reason: Withdrawal Symptoms Last Admin: 01/10/19 12:06 Dose: 50 mg Clonidine HCl (Catapres) 0.1 mg PO Q4H PRN PRN Reason: Agitation Last Admin: 01/10/19 20:44 Dose: 0.1 mg Docusate Sodium (Colace) 100 mg PO BID PRN PRN Reason: Constipation Famotidine (Pepcid) 20 mg PO Q12H SHANTAL Last Admin: 01/10/19 20:45 Dose: 20 mg Folic Acid (Folic Acid) 1 mg PO DAILY [facility] Stop: 01/12/19 09:01 Last Admin: 01/10/19 09:04 Dose: 1 mg Haloperidol Lactate (Haldol) 2 mg IM Q4H PRN PRN Reason: Agitation Hydralazine HCl (Apresoline) 20 mg IVPUSH Q4H PRN PRN Reason: Hypertension Last Admin: 01/10/19 20:47 Dose: 20 mg Lorazepam (Ativan) 2 mg IVPUSH Q4H PRN PRN Reason: Seizures Lorazepam (Ativan) 1 - 3 mg IVPUSH ASDIRECTED PRN; Protocol PRN Reason: Withdrawal Symptoms Last Admin: 01/10/19 13:26 Dose: 1 mg Metoprolol Tartrate (Lopressor) 5 mg IVPUSH Q4H PRN PRN Reason: Tachycardia Miscellaneous Information (Remove Patch) 1 ea TRDERM DAILY PRN PRN Reason: patch removal Multivitamins (Thera) 1 each PO DAILY [facility] Stop: 01/13/19 09:01 Last Admin: 01/10/19 09:04 Dose: 1 each Nicotine (Habitrol) 21 mg TRDERM DAILY PRN PRN Reason: Nicotine Dependence Last Admin: 01/10/19 00:55 Dose: 21 mg Ondansetron HCl (Zofran) 4 mg IV Q6H PRN PRN Reason: Nausea/Vomiting Polyethylene Glycol (Miralax) 17 gm PO DAILY PRN PRN Reason: Constipation Potassium Chloride (Pharmacy To Dose - Potassium Replacement) 0 dose .XX ASDIRECTED PRN PRN Reason: RX TO WATCH K Quetiapine Fumarate (Seroquel) 50 mg PO BEDTIME [facility] Senna/Docusate Sodium (Senna Plus) 1 tab PO BID PRN PRN Reason: Constipation Last Admin: 01/10/19 20:45 Dose: 1 tab Thiamine HCl (Vitamin B-1) 100 mg PO DAILY [facility] Stop: 01/13/19 09:01 Last Admin: 01/10/19 09:05 Dose: 100 mg Topiramate (Topamax) 25 mg PO BID [facility] Last Admin: 01/10/19 20:45 Dose: 25 mg Discontinued Medications Chlordiazepoxide HCl (Librium) 25 mg PO Q8H PRN PRN Reason: Withdrawal Symptoms Diphenhydramine HCl (Benadryl) 50 mg IVPUSH ONETIME ONE Stop: 01/10/19 01:36 Last Admin: 01/10/19 01:45 Dose: 50 mg Diphenhydramine HCl (Benadryl) 50 mg IVPUSH ONETIME ONE Stop: 01/10/19 02:18 Last Admin: 01/10/19 02:22 Dose: 50 mg Hydromorphone HCl (Dilaudid) 0.25 mg IVPUSH Q2H PRN PRN Reason: Pain (severe 7-10) Sodium Chloride (Normal Saline) 1,000 mls @ 150 mls/hr IV ASDIRECTED [facility] Last Admin: 01/10/19 17:26 Dose: 150 mls/hr Thiamine HCl 100 mg/ Sodium (Chloride) 101 mls @ 202 mls/hr IV ONETIME ONE Stop: 01/09/19 21:04 Last Admin: 01/09/19 21:27 Dose: 202 mls/hr Magnesium Sulfate 2 gm/ Premix 50 mls @ 25 mls/hr IV ONETIME ONE Stop: 01/10/19 09:59 Last Admin: 01/10/19 08:06 Dose: 25 mls/hr Lorazepam (Ativan) 1 - 3 mg IVPUSH Q4H PRN; Protocol PRN Reason: Withdrawal Symptoms Last Admin: 01/10/19 00:56 Dose: 3 mg Oxycodone HCl (Oxycodone) 5 mg PO Q4H PRN PRN Reason: Pain (moderate 4-6) Last Admin: 01/10/19 06:44 Dose: 5 mg Pantoprazole Sodium (Protonix Iv) 40 mg IV ONETIME ONE Stop: 01/10/19 00:52 Last Admin: 01/10/19 01:22 Dose: 40 mg Potassium Chloride (Klor-Con M20) 40 meq PO Q4H [facility] Stop: 01/10/19 05:01 Last Admin: 01/10/19 01:21 Dose: 40 meq Quetiapine Fumarate (Seroquel) 25 mg PO NOW STA Stop: 01/10/19 00:51 Last Admin: 01/10/19 01:43 Dose: 25 mg Quetiapine Fumarate (Seroquel) 25 mg PO ONETIME ONE Stop: 01/10/19 01:38 Last Admin: 01/10/19 01:43 Dose: 25 mg Quetiapine Fumarate (Seroquel) 25 mg PO ONETIME ONE Stop: 01/10/19 01:50 Last Admin: 01/10/19 01:43 Dose: 25 mg Quetiapine Fumarate (Seroquel) 50 mg PO ONETIME ONE Stop: 01/10/19 21:01 Last Admin: 01/10/19 20:45 Dose: 50 mg Topiramate (Topamax) 25 mg PO BEDTIME ONE Stop: 01/10/19 00:50 Last Admin: 01/10/19 01:21 Dose: 25 mg - Exam General: Alert, Oriented, Cooperative, No Acute Distress HEENT: Pupils Equal, Pupils Reactive, EOMI, Mucous Membr. Moist/[place] Neck: Supple Lungs: Clear to Auscultation, Normal Respiratory Effort Cardiovascular: Regular Rate, Regular Rhythm GI/Abdominal Exam: Normal Bowel Sounds, Soft, Non-Tender, No Organomegaly, No Abnormal Bruit (Male) Exam: Deferred Back Exam: Normal Inspection, Full Range of Motion Extremities: Normal Inspection, Normal Range of Motion, Non-Tender, No Pedal Edema, Normal Capillary Refill Peripheral Pulses: 2+: Dorsalis Pedis (L), Dorsalis Pedis (R) Skin: Warm, Dry, Intact Neurological: No New Focal Deficit Psy/Mental Status: Alert, Normal Affect, Normal Mood. No: Anxious, Depressed, Agitated, Suicidal Ideation, Hallucinations, Withdrawal Symptoms - Problem List Review Problem List Initiated/Reviewed/Updated: Yes - My Orders Last 24 Hours: My Active Orders 01/10/19 09:00 Famotidine [Pepcid] 20 mg PO Q12H Folic Acid 1 mg PO DAILY Multivitamins,Therapeutic [Thera] 1 each PO DAILY Thiamine [Vitamin B-1] 100 mg PO DAILY Topiramate [Topamax] 25 mg PO BID 01/10/19 Breakfast Regular Diet [DIET] 01/11/19 21:00 QUEtiapine [SEROquel] 50 mg PO BEDTIME 01/12/19 05:11 BASIC METABOLIC PANEL,BMP [CHEM] AM MAGNESIUM [CHEM] AM 01/13/19 05:11 BASIC METABOLIC PANEL,BMP [CHEM] AM MAGNESIUM [CHEM] AM - Plan Plan:: Assessment/Plan: Acute: ETOH Withdrawal Symptoms, Improved - Carries a hx/o heady drinking - Drinks at least 1L of whiskey a day per - Triggers: Job and increased life stressors - ASHKAN is 0.32 - CIWAA score is 0 - He is now w/o tremors and visual hallucinations on examinations - Awaiting SAC and Tele-psych consult Depression - Acute on Chronic - Had suicidal thoughts yesterday per - He is not on medications - 1:1 Care until he is evaluated by Dr. Gomez - Pending Tele-psych consult Nicotine Dependence - Smokes < 1ppd down from 2ppd - Nicotine patch daily Hx/o Substance Abuse - Benzo 2013; Heroin 2016; LSD 2008; Marijuana/Hashish 2016; Meth Nov 2016; Mushrooms before 2008 - Had inpatient chemical rehab in 2007 for heroin addiction in [place] at [facility] Resolved: S/p Hypokalemia - K 3.4 - 2/2 poor intake and GI loss - Replete and monitor S/p Transaminitis - 2/2 ETOH Abuse - Avoid Acetaminophen for now - IV fluids Chronic: ETOH Use/Dependence Substance Abuse Anxiety Depression Renal Stone Plan: He is clinically much better Routine AM Labs CIWAA Protocol Folic Acid, MVI and Thiamine DVT and GI PPx SW/CM for d/c planning Awaiting SAC and Tele-psych consult Suicidal/Seizure Precaution Additional orders as above Code status: DNR/DNI
[2019-01-11] MEDS: Famotidine 20 MG Tab PO SCH ×2 (08:45→20:10)
[2019-01-11] MEDS: Folic Acid 1 MG Tab PO SCH (08:45)
[2019-01-11] MEDS: Thiamine 100 MG Tab PO SCH (08:45)
[2019-01-11] MEDS: Multivitamins,Therapeutic Tab PO SCH (08:45)
[2019-01-11] MEDS: Topiramate 25 MG Tab PO SCH ×2 (08:45→20:10)
[2019-01-11] MEDS: Nicotine 21 MG/24 Hr Patch TRDERM PRN (19:43)
[2019-01-11] MEDS: LORazepam 2 MG/ML SDV IVPUSH PRN (19:44)
[2019-01-11] MEDS: QUEtiapine 25 MG Tab PO SCH (20:10)
[2019-01-11] MEDS: Hydrochlorothiazide 12.5 MG Cap PO SCH (20:10)
[2019-01-11] MEDS: Metoprolol Tartrate 5 MG/5 ML SDV IVPUSH PRN (21:00)
[2019-01-11] MEDS ORDERED: Nicotine Polacrilex 2 MG Gum CHEW PRN (21:44)
[2019-01-12] MEDS: Hydrochlorothiazide 12.5 MG Cap PO SCH ×2 (05:50→14:56)
[2019-01-12] MEDS: Multivitamins,Therapeutic Tab PO SCH (08:44)
[2019-01-12] MEDS: FLUoxetine 20 MG Cap PO SCH (08:44)
[2019-01-12] MEDS: Topiramate 25 MG Tab PO SCH ×2 (08:45→20:47)
[2019-01-12] MEDS: Famotidine 20 MG Tab PO SCH ×2 (08:45→20:47)
[2019-01-12] MEDS: Thiamine 100 MG Tab PO SCH (08:45)
[2019-01-12] MEDS: Folic Acid 1 MG Tab PO SCH (08:45)
--- NOTE | 2019-01-12 11:55 | PCM.PN ---
- General Info Date of Service: 01/12/19 Admission Dx/Problem (Free Text): Admission Diagnosis/Problem Admission Diagnosis/Problem Chronic alcohol abuse Subjective Update: Follow Up Functional Status: Reports: Pain Controlled, Tolerating Diet, Ambulating, Urinating. Denies: New Symptoms - Review of Systems General: Denies: Fever, Weakness, Fatigue, Malaise, Chills HEENT: Reports: No Symptoms Pulmonary: Denies: Shortness of Breath Cardiovascular: Denies: Chest Pain, Palpitations, Dyspnea on Exertion, Orthopnea , Lightheadedness Gastrointestinal: Denies: Abdominal Pain, Constipation, Decreased Appetite, Nausea, Vomiting Genitourinary: Reports: No Symptoms Musculoskeletal: Reports: No Symptoms Skin: Reports: No Symptoms Neurological: Denies: Confusion, Dizziness, Headache, Seizure, Trouble Speaking , Difficulty Walking, Weakness, Gait Disturbance Psychiatric: Denies: Depression, Mood Lability, Anxiety, Agitation, Cravings, Hallucinations, Suicidal Ideation, Homicidal Ideation Systems Review Comment:: No overnight or acute issues. He rested well last night and feels fairly good this AM. He has no complaints. His morning labs are fairly unremarkable. - Patient Data Vitals - Most Recent: Last Vital Signs Temp 36.3 C 01/12/19 08:00 Pulse 107 H 01/12/19 08:00 Resp 14 01/12/19 08:00 BP 135/96 H 01/12/19 08:00 Pulse Ox 99 01/12/19 08:00 Orthostatic Blood Pressure [ 114/76 Standing] Orthostatic Blood Pressure [ 122/78 Sitting] Orthostatic Blood Pressure [ 127/68 Supine] Weight - Most Recent: 92.896 kg I&O - Last 24 Hours: Intake & Output 01/11/19 01/12/19 01/12/19 22:59 06:59 14:59 Intake Total 400 500 240 Balance 400 500 240 Lab Results Last 24 Hours: Laboratory Results - last 24 hr 01/12/19 Range/Units 05:50 Sodium 135 L (136-145) mEq/L Potassium 3.6 (3.5-5.1) mEq/L Chloride 97 L (98-107) mEq/L Carbon Dioxide 24 (21-32) mEq/L Anion Gap 17.6 H (5-15) BUN 10 (7-18) mg/dL Creatinine 1.0 (0.7-1.3) mg/dL Est Cr Clr Drug Dosing 137.38 mL/min Estimated GFR (MDRD) > 60 (>60) mL/min BUN/Creatinine Ratio 10.0 L (14-18) Glucose 108 H (74-106) mg/dL Calcium 9.7 (8.5-10.1) mg/dL Magnesium 1.9 (1.8-2.4) mg/dl Med Orders - Current: Current Medications Albuterol/Ipratropium (Duoneb 3.0-0.5 Mg/3 Ml) 3 ml NEB Q4H PRN PRN Reason: Shortness Of Breath/wheezing Bisacodyl (Dulcolax) 5 mg PO DAILY PRN PRN Reason: Constipation Chlordiazepoxide HCl (Librium) 50 mg PO Q8H PRN PRN Reason: Withdrawal Symptoms Last Admin: 01/10/19 12:06 Dose: 50 mg Clonidine HCl (Catapres) 0.1 mg PO Q4H PRN PRN Reason: Agitation Last Admin: 01/10/19 20:44 Dose: 0.1 mg Docusate Sodium (Colace) 100 mg PO BID PRN PRN Reason: Constipation Famotidine (Pepcid) 20 mg PO Q12H SHANTAL Last Admin: 01/12/19 08:45 Dose: 20 mg Fluoxetine HCl (Prozac) 40 mg PO DAILY [facility] Last Admin: 01/12/19 08:44 Dose: 40 mg Haloperidol Lactate (Haldol) 2 mg IM Q4H PRN PRN Reason: Agitation Hydralazine HCl (Apresoline) 20 mg IVPUSH Q4H PRN PRN Reason: Hypertension Last Admin: 01/10/19 20:47 Dose: 20 mg Hydrochlorothiazide (Hydrochlorothiazide) 12.5 mg PO BIDDIURETIC SHANTAL Last Admin: 01/12/19 05:50 Dose: 12.5 mg Lorazepam (Ativan) 2 mg IVPUSH Q4H PRN PRN Reason: Seizures Lorazepam (Ativan) 1 - 3 mg IVPUSH ASDIRECTED PRN; Protocol PRN Reason: Withdrawal Symptoms Last Admin: 01/11/19 19:44 Dose: 2 mg Metoprolol Tartrate (Lopressor) 5 mg IVPUSH Q4H PRN PRN Reason: Tachycardia Last Admin: 01/11/19 21:00 Dose: 5 mg Miscellaneous Information (Remove Patch) 1 ea TRDERM DAILY PRN PRN Reason: patch removal Multivitamins (Thera) 1 each PO DAILY [facility] Stop: 01/13/19 09:01 Last Admin: 01/12/19 08:44 Dose: 1 each Nicotine (Habitrol) 21 mg TRDERM DAILY PRN PRN Reason: Nicotine Dependence Last Admin: 01/11/19 19:43 Dose: 21 mg Nicotine Polacrilex (Nicorelief) 2 mg CHEW Q2H PRN PRN Reason: Other Last Admin: 01/11/19 21:54 Dose: 2 mg Ondansetron HCl (Zofran) 4 mg IV Q6H PRN PRN Reason: Nausea/Vomiting Polyethylene Glycol (Miralax) 17 gm PO DAILY PRN PRN Reason: Constipation Potassium Chloride (Pharmacy To Dose - Potassium Replacement) 0 dose .XX ASDIRECTED PRN PRN Reason: RX TO WATCH K Quetiapine Fumarate (Seroquel) 50 mg PO BEDTIME [facility] Last Admin: 01/11/19 20:10 Dose: 50 mg Senna/Docusate Sodium (Senna Plus) 1 tab PO BID PRN PRN Reason: Constipation Last Admin: 01/10/19 20:45 Dose: 1 tab Thiamine HCl (Vitamin B-1) 100 mg PO DAILY [facility] Stop: 01/13/19 09:01 Last Admin: 01/12/19 08:45 Dose: 100 mg Topiramate (Topamax) 25 mg PO BID [facility] Last Admin: 01/12/19 08:45 Dose: 25 mg Discontinued Medications Chlordiazepoxide HCl (Librium) 25 mg PO Q8H PRN PRN Reason: Withdrawal Symptoms Diphenhydramine HCl (Benadryl) 50 mg IVPUSH ONETIME ONE Stop: 01/10/19 01:36 Last Admin: 01/10/19 01:45 Dose: 50 mg Diphenhydramine HCl (Benadryl) 50 mg IVPUSH ONETIME ONE Stop: 01/10/19 02:18 Last Admin: 01/10/19 02:22 Dose: 50 mg Folic Acid (Folic Acid) 1 mg PO DAILY [facility] Stop: 01/12/19 09:01 Last Admin: 01/12/19 08:45 Dose: 1 mg Hydromorphone HCl (Dilaudid) 0.25 mg IVPUSH Q2H PRN PRN Reason: Pain (severe 7-10) Sodium Chloride (Normal Saline) 1,000 mls @ 150 mls/hr IV ASDIRECTED [facility] Last Admin: 01/10/19 17:26 Dose: 150 mls/hr Thiamine HCl 100 mg/ Sodium (Chloride) 101 mls @ 202 mls/hr IV ONETIME ONE Stop: 01/09/19 21:04 Last Admin: 01/09/19 21:27 Dose: 202 mls/hr Magnesium Sulfate 2 gm/ Premix 50 mls @ 25 mls/hr IV ONETIME ONE Stop: 01/10/19 09:59 Last Admin: 01/10/19 08:06 Dose: 25 mls/hr Lorazepam (Ativan) 1 - 3 mg IVPUSH Q4H PRN; Protocol PRN Reason: Withdrawal Symptoms Last Admin: 01/10/19 00:56 Dose: 3 mg Oxycodone HCl (Oxycodone) 5 mg PO Q4H PRN PRN Reason: Pain (moderate 4-6) Last Admin: 01/10/19 06:44 Dose: 5 mg Pantoprazole Sodium (Protonix Iv) 40 mg IV ONETIME ONE Stop: 01/10/19 00:52 Last Admin: 01/10/19 01:22 Dose: 40 mg Potassium Chloride (Klor-Con M20) 40 meq PO Q4H [facility] Stop: 01/10/19 05:01 Last Admin: 01/10/19 01:21 Dose: 40 meq Quetiapine Fumarate (Seroquel) 25 mg PO NOW STA Stop: 01/10/19 00:51 Last Admin: 01/10/19 01:43 Dose: 25 mg Quetiapine Fumarate (Seroquel) 25 mg PO ONETIME ONE Stop: 01/10/19 01:38 Last Admin: 01/10/19 01:43 Dose: 25 mg Quetiapine Fumarate (Seroquel) 25 mg PO ONETIME ONE Stop: 01/10/19 01:50 Last Admin: 01/10/19 01:43 Dose: 25 mg Quetiapine Fumarate (Seroquel) 50 mg PO ONETIME ONE Stop: 01/10/19 21:01 Last Admin: 01/10/19 20:45 Dose: 50 mg Topiramate (Topamax) 25 mg PO BEDTIME ONE Stop: 01/10/19 00:50 Last Admin: 01/10/19 01:21 Dose: 25 mg - Exam General: Alert, Oriented, Cooperative, No Acute Distress HEENT: Pupils Equal, Pupils Reactive, EOMI, Mucous Membr. Moist/[place] Neck: Supple Lungs: Clear to Auscultation, Normal Respiratory Effort Cardiovascular: Regular Rate, Regular Rhythm GI/Abdominal Exam: Normal Bowel Sounds, Soft, Non-Tender, No Organomegaly, No Abnormal Bruit (Male) Exam: Deferred Back Exam: Normal Inspection, Decreased Range of Motion Extremities: Normal Inspection, Normal Range of Motion, Non-Tender, No Pedal Edema, Normal Capillary Refill Peripheral Pulses: 2+: Dorsalis Pedis (L), Dorsalis Pedis (R) Skin: Warm, Dry, Intact Neurological: No New Focal Deficit Psy/Mental Status: Alert, Normal Affect, Anxious. No: Agitated, Suicidal Ideation, Homicidal Ideation, Hallucinations, Withdrawal Symptoms - Problem List Review Problem List Initiated/Reviewed/Updated: Yes - My Orders Last 24 Hours: My Active Orders 01/11/19 19:30 hydroCHLOROthiazide 12.5 mg PO BIDDIURETIC 01/11/19 21:00 QUEtiapine [SEROquel] 50 mg PO BEDTIME 01/11/19 21:44 Nicotine Polacrilex [Nicorelief] 2 mg CHEW Q2H PRN 01/12/19 10:13 Patient Status [ADT] Routine 01/13/19 05:11 BASIC METABOLIC PANEL,BMP [CHEM] AM MAGNESIUM [CHEM] AM - Plan Plan:: Assessment/Plan: Acute: ETOH Withdrawal Symptoms, Continues to Improve - Carries a hx/o heady drinking - Drinks at least 1L of whiskey a day per - Triggers: Job and increased life stressors - ASHKAN is 0.32 - CIWAA score is - Tachycardic with activity and still has elevated blood pressures - Seen By Martin Spivey commitment in placed - Tele-psych consult done; Dr. Gomez recommends for him for come off 1:1, Prozac 40 mg po daily, AA and Pastoral Care Depression - Acute on Chronic - Had suicidal thoughts yesterday per - He is not on medications; now on Prozac 40 mg po Daily - Now off 1:[address] Gomez Nicotine Dependence - Smokes < 1ppd down from 2ppd - Nicotine patch daily Hx/o Substance Abuse - Benzo 2013; Heroin 2016; LSD 2008; Marijuana/Hashish 2016; Meth Nov 2016; Mushrooms before 2008 - Had inpatient chemical rehab in 2007 for heroin addiction in [place] at [facility] Resolved: S/p Hypokalemia - K 3.4 - 2/2 poor intake and GI loss - Replete and monitor S/p Transaminitis - 2/2 ETOH Abuse - Avoid Acetaminophen for now - IV fluids Chronic: ETOH Use/Dependence Substance Abuse Anxiety Depression Renal Stone Plan: He continues to improve clinically Transfer to [facility] with Tele Routine AM Labs Continue CIWAA Protocol PRN Ativan for Anxiety Folic Acid, MVI and Thiamine DVT and GI PPx SW/CM for d/c planning Seizure Precaution Additional orders as above Code status: DNR/DNI Pending placement to [facility]
[2019-01-12] MEDS: QUEtiapine 25 MG Tab PO SCH (20:47)
[2019-01-12] MEDS: Nicotine 21 MG/24 Hr Patch TRDERM PRN (20:49)
[2019-01-12] MEDS ORDERED: Hydrochlorothiazide 12.5 MG Cap PO SCH (21:00)
--- NOTE | 2019-01-12 22:30 | CONS ---
CONSULTING PHYSICIAN: Martin Spivey LAC DATE OF CONSULTATION: 01/12/2019 TIME: 9:30. The patient is a 28-year-old male admitted to [facility] on 01/10/2019 for alcohol detoxification. An alcohol and drug evaluation were requested by his medical treatment team. SOURCE OF INFORMATION: Hospital records, staff report, background research, prescription drug monitoring report, and a verbal consent for collateral information from the patient's . HISTORY OF PRESENT ILLNESS: 01/11/2019: The patient is a 28-year-old male with past medical history of alcohol use and polysubstance dependence, who presented to [facility] with a request for alcohol detoxification. The patient reports to the ED that he drinks approximately 2/5th of whiskey a day and has for the past 1-1/2 years. However, he has been drinking more than usual due to job-related issues and stressors. The patient demonstrated moderate withdrawals including tremors and visual hallucinations. The patient reports the ER that he has had suicidal thoughts, which was corroborated by the patient's who reports that the patient has verbalized recently that he wants to jump off a building. The patient went on to report that he has participated in the inpatient treatment twice in the past. Most recently, about 4 years ago in [place] for heroin dependence. The patient reports that he was able to stay sober for 3 months following that treatment episode. The patient had a possession of marijuana charge in 02/2018 and has been on the drug patch since that time. The patient's reports that the patient is an every day cannabis smoker, however, since being on the drug patch, the patient is cross addicted to alcohol. The patient's admitting ASHKAN was 0.32. The patient reports the ER staff that he had a history of polysubstance dependence. His last use of LSD and mushroom was in 2008. Last use of benzodiazepines in 2013. Last use of heroin, opiates, and methamphetamine in 2017, and continue use of cannabis and alcohol since age 15. The patient is also reported to smoke a half to a pack a day of cigarettes. The patient also reported that he has attempted to detox himself at home approximately 5 times in the past with no history of seizures. He states he typically starts to hallucinate around 12 hours after his last drink. The patient's last drink prior to admission was 01/08/2019, and he reported that he drank about 2/5th of whiskey. An alcohol and drug evaluation were attempted, however, the patient was unamenable to follow through with the evaluation. The patient became visibly irritated and anxious with an increase in his blood pressure. The patient's medical condition and autonomy were respected, and there was no further attempt to obtain an evaluation. The patient did agree that his could be consulted regarding his situation, and the patient called his on his cellphone, and she agreed to come to the hospital and speak with this counselor. The patient's reported that the patient cross addicted from marijuana in February 2018 when he got his drug patch on alcohol and he has been drinking between one- and two- fifth of whiskey or vodka daily since that time. The patient's is also quite concerned about the patient's mental health and states that in recent days, the patient told her he had plan on jumping off the highest building in [place], [facility]. The patient's is asking for professional intervention as she is concerned for the patient's welfare. The patient's then told the patient that he must participate in inpatient treatment. Dr. Gonzales was consulted regarding the outcome of our attempted evaluation, and it was decided that based on the patient's report to the ER and his 's collateral report that a petition for involuntary commitment would be appropriate. Even though the patient was not amenable to participate in an accompanying alcohol and drug evaluation, a petition for involuntary commitment was drafted pending Dr. Gomez mental health assessment on 01/11/2019. 01/12/2019: This counselor called the patient's care nurse, Jackelyn, enquiring if Dr. Gomez had completed his mental health assessment. Jackelyn reported that Dr. Gomez had seen the patient and gave a recommendation for AA and spiritual care and discontinued suicide precautions. MARCELLA Vail, and Dr. Gonzales were consulted regarding the outcome of the psychiatric report. The patient's was also contacted, and she requested to speak with Dr. Gomez about her concern for the patient. Consequently, the petition for involuntary commitment was suspended pending further notification and consultation with Dr. Gomez. The patient's was offered continued services with [facility] to assist the patient with admittance to a substance abuse treatment facility or assistance with the petition for involuntary commitment by civil process should that be necessary. CHRISTINA /[id number]
[2019-01-13] MEDS: Hydrochlorothiazide 12.5 MG Cap PO SCH ×2 (06:04→14:42)
[2019-01-13] MEDS: FLUoxetine 20 MG Cap PO SCH (08:07)
[2019-01-13] MEDS: Multivitamins,Therapeutic Tab PO SCH (08:07)
[2019-01-13] MEDS: Thiamine 100 MG Tab PO SCH (08:08)
[2019-01-13] MEDS: Topiramate 25 MG Tab PO SCH (08:09)
[2019-01-13] MEDS: Famotidine 20 MG Tab PO SCH (08:09)
[2019-01-13] MEDS ORDERED: Potassium Chloride 20 MEQ Tab.ER PO ONE (10:00)
--- NOTE | 2019-01-13 10:14 | PCM.DCSUM1 ---
Discharge Summary - Hospital Course HPI Initial Comments: This is a 28 yo white male with past medical hx of ETOH Use/Dependence, Substance Abuse, Anxiety, Depression and Hx/o Renal Stone who comes in for alcohol detoxification. He reports feeling hot and cold, quivering, increased respiratory rate, reduced appetite, abdominal soreness, and generalized weakness. He also had nausea and emesis this morning. He reports no bowel movement in 3 days. Patient drinks about 1L of whiskey a day for about 1-2 years now. However he has been drinking more than usual due to job related issues and increased life stressors (did not specify it). His last drink was last evening. He denies having been to chemical inpatient treatment except for heroin abuse in 2007 at [facility] in [place]. At bedside during examination, he has obvious tremors and reports visual hallucinations. He also admits to having suicidal thought but did not mention his means or methods of carrying out his plans. His thinks he is severely depressed. His initial work up in ED shows a CBC remarkable for MCV of 92.4, MPV of 8.2, and Monocytes of 11%. His chemistry is significant for K of 3.4, CO2 of 18, AG of 26.4, AST of 109, ALT of 113, and Total Protein of 8.4. His UA is suggestive of UTI. His UDS is positive for Salicylates of 1. His ASHKAN is 0.32. Patient is being admitted for etoh withdrawal symptoms. He is DNR/DNI. Diagnosis: Stroke: No Modified [place] Scale: No Symptoms at All Modified [place] Scale Score: 0 - Discharge Data Discharge Date: 01/13/19 Discharge Disposition: Home, Self-Care 01 Condition: Good - Discharge Diagnosis/Problem(s) (1) Alcohol withdrawal hallucinosis SNOMED Code(s): 294291874 ICD Code: F10.232 - ALCOHOL DEPENDENCE W WITHDRAWAL WITH PERCEPTUAL DISTURBANCE Status: Resolved (2) Nicotine dependence SNOMED Code(s): 81683832 ICD Code: F17.200 - NICOTINE DEPENDENCE, UNSPECIFIED, UNCOMPLICATED Status : Chronic Qualifiers: Nicotine product type: cigarettes Substance use status: uncomplicated Qualified Code(s): F17.210 - Nicotine dependence, cigarettes, uncomplicated (3) Depression SNOMED Code(s): 45587750 ICD Code: F32.9 - MAJOR DEPRESSIVE DISORDER, SINGLE EPISODE, UNSPECIFIED Status: Acute Qualifiers: Depression Type: unspecified Qualified Code(s): F32.9 - Major depressive disorder, single episode, unspecified (4) Hypokalemia SNOMED Code(s): 08377932 ICD Code: E87.6 - HYPOKALEMIA Status: Acute (5) Transaminitis SNOMED Code(s): 588085324, 689038590 ICD Code: R74.0 - NONSPEC ELEV OF LEVELS OF TRANSAMNS & LACTIC ACID DEHYDRGNSE Status: Resolved (6) Alcohol intoxication SNOMED Code(s): 55746570 ICD Code: F10.929 - ALCOHOL USE, UNSPECIFIED WITH INTOXICATION, UNSPECIFIED Status: Resolved Qualifiers: Complication of substance-induced condition: with unspecified complication Qualified Code(s): F10.929 - Alcohol use, unspecified with intoxication, unspecified - Patient Summary/Data Operative Procedure(s) Performed: None Complications: None Consults: Consultations 01/10/19 00:46 Consult to Case Management/Certified Drug Counselor [CONS] Routine Consult to Physician [CONS] Routine Consult to Spiritual Care [CONS] Routine Respiratory Care Assess and Treatment [CONS] Routine Labs Pending at D/C: None Recommended Follow-up Testing/Procedures: None Hospital Course: Patient was primarily admitted for ETOH detoxification. He carried a hx/o chronic alcoholism and substance abuse. He came to us essentially because it was getting out of hand according to his . His increased alcoholism was felt to be due to job-related issues. So an presentation to hospital, he received initial treatment in the emergency department and was subsequently moved to the unit for further treatment. In the unit, we initiated CIWAA protocol to further treat his withdrawals.He was also put on suicide precaution with 1:1 care until he was seen by tele-psychiatry. SAC and Telepsych were consult for further evaluation of his underlying addition and untreated mental health illness. After his symptoms improved, he was taken of CIWAA protocol. But before he came off on protocol, Dr. Gomez discontinued his 1:1 care, offered AA, Pastoral guidance and started him on Prozac 40 mg po daily. His hospital course was uncomplicated and suffered no complications during his brief stay with us. Once medically cleared, he was then discharged home. Patient was advised to follow up with PCP as needed and to keep his appointment with Dr. Gomez in 4-6 weeks. He was further advised to call 911 and go to nearest medical facility should he experience mental crisis. Lastly, he was informed counseling services is available outpatient at [facility] should he needed one in the future. The patient expressed understanding and in agreement with the plans as discussed above. All questions were answered. - Patient Instructions Diet: Usual Diet as Tolerated Activity: As Tolerated Driving: Do Not Drive Showering/Bathing: May Shower Notify Provider of: Fever, Increased Pain, Nausea and/or Vomiting Other/Special Instructions: - Please take new medication as directed. - Continue home medications and rotuine activities as tolerated. - Recomned repeat BMP and Mg levels through you family doctor's office. - Call your family doctor for any questions or concerns after discharge. - Follow up with PCP in 1 week repeat BMP and Mg level. - Should you experience mental health crisis call 911 and to go to the nearest medical facility. - Come back or seek immediate care should your symptoms persist or get worse - Discharge Plan *PRESCRIPTION DRUG MONITORING PROGRAM REVIEWED*: Not Applicable *COPY OF PRESCRIPTION DRUG MONITORING REPORT IN PATIENT NASRIN: Not Applicable Prescriptions/Med Rec: Folic Acid 1 mg PO BEDTIME #5 tab Multivitamin [Multi-Vitamin Daily] 1 each PO DAILY #5 tablet Nicotine [Habitrol] 21 mg TRDERM DAILY PRN #30 patch PRN Reason: Nicotine Dependence QUEtiapine [SEROquel] 50 mg PO BEDTIME #5 tablet Thiamine [Vitamin B-1] 100 mg PO DAILY #5 tablet Home Medications: Home Meds Folic Acid 1 mg PO BEDTIME #5 tab 01/13/19 [Rx] Multivitamin [Multi-Vitamin Daily] 1 each PO DAILY #5 tablet 01/13/19 [Rx] Nicotine [Habitrol] 21 mg TRDERM DAILY PRN #30 patch 01/13/19 [Rx] QUEtiapine [SEROquel] 50 mg PO BEDTIME #5 tablet 01/13/19 [Rx] Thiamine [Vitamin B-1] 100 mg PO DAILY #5 tablet 01/13/19 [Rx] Patient Handouts: Steps to Quit Smoking Referrals: Tam Raymundo PA-C [Physician Pi/Senior Research Associate] - 01/22/19 10:30 am - Discharge Summary/Plan Comment DC Time >30 min.: No Discharge Summary/Plan Comment: Discharge to Home - General Info Date of Service: 01/13/19 Admission Dx/Problem (Free Text: Admission Diagnosis/Problem Admission Diagnosis/Problem Chronic alcohol abuse Subjective Update: Follow Up Functional Status: Reports: Pain Controlled, Tolerating Diet, Ambulating, Urinating. Denies: New Symptoms - Review of Systems General: Denies: Fever, Weakness, Fatigue, Chills, Night Sweats Pulmonary: Reports: No Symptoms Cardiovascular: Reports: No Symptoms Gastrointestinal: Denies: Abdominal Pain, Nausea, Vomiting Genitourinary: Reports: No Symptoms Musculoskeletal: Reports: No Symptoms Skin: Reports: No Symptoms Neurological: Denies: Confusion, Headache, Seizure, Tingling, Tremors, Trouble Speaking, Difficulty Walking, Weakness, Gait Disturbance Psychiatric: Denies: Depression, Anxiety, Agitation, Hallucinations, Suicidal Ideation, Homicidal Ideation Systems Review Comment: No overnight or acute issues. Be rested well last night. No issues with his Prozac. He feels he is ready to go this morning. His K is mildly low. - Patient Data Vitals - Most Recent: Last Vital Signs Temp 36.4 C 01/13/19 08:05 Pulse 106 H 01/13/19 08:05 Resp 18 01/13/19 08:05 BP 126/83 01/13/19 08:05 Pulse Ox 99 01/13/19 08:05 Orthostatic Blood Pressure [ 114/76 Standing] Orthostatic Blood Pressure [ 122/78 Sitting] Orthostatic Blood Pressure [ 127/68 Supine] Weight - Most Recent: 90.407 kg I&O - Last 24 hours: Intake & Output 01/12/19 01/13/19 01/13/19 22:59 06:59 14:59 Intake Total 1200 800 Balance 1200 800 Lab Results - Last 24 hrs: Laboratory Results - last 24 hr 01/13/19 Range/Units 05:30 Sodium 133 L (136-145) mEq/L Potassium 3.3 L (3.5-5.1) mEq/L Chloride 98 (98-107) mEq/L Carbon Dioxide 22 (21-32) mEq/L Anion Gap 16.3 H (5-15) BUN 16 (7-18) mg/dL Creatinine 1.0 (0.7-1.3) mg/dL Est Cr Clr Drug Dosing 137.38 mL/min Estimated GFR (MDRD) > 60 (>60) mL/min BUN/Creatinine Ratio 16.0 (14-18) Glucose 105 (74-106) mg/dL Calcium 10.0 (8.5-10.1) mg/dL Magnesium 1.9 (1.8-2.4) mg/dl Med Orders - Current: Current Medications Albuterol/Ipratropium (Duoneb 3.0-0.5 Mg/3 Ml) 3 ml NEB Q4H PRN PRN Reason: Shortness Of Breath/wheezing Bisacodyl (Dulcolax) 5 mg PO DAILY PRN PRN Reason: Constipation Chlordiazepoxide HCl (Librium) 50 mg PO Q8H PRN PRN Reason: Withdrawal Symptoms Last Admin: 01/10/19 12:06 Dose: 50 mg Clonidine HCl (Catapres) 0.1 mg PO Q4H PRN PRN Reason: Agitation Last Admin: 01/10/19 20:44 Dose: 0.1 mg Docusate Sodium (Colace) 100 mg PO BID PRN PRN Reason: Constipation Famotidine (Pepcid) 20 mg PO Q12H [facility] Last Admin: 01/13/19 08:09 Dose: 20 mg Fluoxetine HCl (Prozac) 40 mg PO DAILY SHANTAL Last Admin: 01/13/19 08:07 Dose: 40 mg Haloperidol Lactate (Haldol) 2 mg IM Q4H PRN PRN Reason: Agitation Hydralazine HCl (Apresoline) 20 mg IVPUSH Q4H PRN PRN Reason: Hypertension Last Admin: 01/10/19 20:47 Dose: 20 mg Hydrochlorothiazide (Hydrochlorothiazide) 12.5 mg PO BIDDIURETIC [facility] Last Admin: 01/13/19 06:04 Dose: 12.5 mg Lorazepam (Ativan) 2 mg IVPUSH Q4H PRN PRN Reason: Seizures Lorazepam (Ativan) 1 - 3 mg IVPUSH ASDIRECTED PRN; Protocol PRN Reason: Withdrawal Symptoms Last Admin: 01/11/19 19:44 Dose: 2 mg Metoprolol Tartrate (Lopressor) 5 mg IVPUSH Q4H PRN PRN Reason: Tachycardia Last Admin: 01/11/19 21:00 Dose: 5 mg Miscellaneous Information (Remove Patch) 1 ea TRDERM DAILY PRN PRN Reason: patch removal Nicotine (Habitrol) 21 mg TRDERM DAILY PRN PRN Reason: Nicotine Dependence Last Admin: 01/12/19 20:49 Dose: 21 mg Nicotine Polacrilex (Nicorelief) 2 mg CHEW Q2H PRN PRN Reason: Other Last Admin: 01/11/19 21:54 Dose: 2 mg Ondansetron HCl (Zofran) 4 mg IV Q6H PRN PRN Reason: Nausea/Vomiting Polyethylene Glycol (Miralax) 17 gm PO DAILY PRN PRN Reason: Constipation Potassium Chloride (Pharmacy To Dose - Potassium Replacement) 0 dose .XX ASDIRECTED PRN PRN Reason: RX TO WATCH K Quetiapine Fumarate (Seroquel) 50 mg PO BEDTIME [facility] Last Admin: 01/12/19 20:47 Dose: 50 mg Senna/Docusate Sodium (Senna Plus) 1 tab PO BID PRN PRN Reason: Constipation Last Admin: 01/10/19 20:45 Dose: 1 tab Topiramate (Topamax) 25 mg PO BID [facility] Last Admin: 01/13/19 08:09 Dose: 25 mg Discontinued Medications Chlordiazepoxide HCl (Librium) 25 mg PO Q8H PRN PRN Reason: Withdrawal Symptoms Diphenhydramine HCl (Benadryl) 50 mg IVPUSH ONETIME ONE Stop: 01/10/19 01:36 Last Admin: 01/10/19 01:45 Dose: 50 mg Diphenhydramine HCl (Benadryl) 50 mg IVPUSH ONETIME ONE Stop: 01/10/19 02:18 Last Admin: 01/10/19 02:22 Dose: 50 mg Folic Acid (Folic Acid) 1 mg PO DAILY [facility] Stop: 01/12/19 09:01 Last Admin: 01/12/19 08:45 Dose: 1 mg Hydromorphone HCl (Dilaudid) 0.25 mg IVPUSH Q2H PRN PRN Reason: Pain (severe 7-10) Sodium Chloride (Normal Saline) 1,000 mls @ 150 mls/hr IV ASDIRECTED [facility] Last Admin: 01/10/19 17:26 Dose: 150 mls/hr Thiamine HCl 100 mg/ Sodium (Chloride) 101 mls @ 202 mls/hr IV ONETIME ONE Stop: 01/09/19 21:04 Last Admin: 01/09/19 21:27 Dose: 202 mls/hr Magnesium Sulfate 2 gm/ Premix 50 mls @ 25 mls/hr IV ONETIME ONE Stop: 01/10/19 09:59 Last Admin: 01/10/19 08:06 Dose: 25 mls/hr Lorazepam (Ativan) 1 - 3 mg IVPUSH Q4H PRN; Protocol PRN Reason: Withdrawal Symptoms Last Admin: 01/10/19 00:56 Dose: 3 mg Multivitamins (Thera) 1 each PO DAILY SHANTAL Stop: 01/13/19 09:01 Last Admin: 01/13/19 08:07 Dose: 1 each Oxycodone HCl (Oxycodone) 5 mg PO Q4H PRN PRN Reason: Pain (moderate 4-6) Last Admin: 01/10/19 06:44 Dose: 5 mg Pantoprazole Sodium (Protonix Iv) 40 mg IV ONETIME ONE Stop: 01/10/19 00:52 Last Admin: 01/10/19 01:22 Dose: 40 mg Potassium Chloride (Klor-Con M20) 40 meq PO Q4H SHANTAL Stop: 01/10/19 05:01 Last Admin: 01/10/19 01:21 Dose: 40 meq Potassium Chloride (Klor-Con M20) 60 meq PO ONETIME ONE Stop: 01/13/19 10:01 Last Admin: 01/13/19 10:01 Dose: 60 meq Quetiapine Fumarate (Seroquel) 25 mg PO NOW STA Stop: 01/10/19 00:51 Last Admin: 01/10/19 01:43 Dose: 25 mg Quetiapine Fumarate (Seroquel) 25 mg PO ONETIME ONE Stop: 01/10/19 01:38 Last Admin: 01/10/19 01:43 Dose: 25 mg Quetiapine Fumarate (Seroquel) 25 mg PO ONETIME ONE Stop: 01/10/19 01:50 Last Admin: 01/10/19 01:43 Dose: 25 mg Quetiapine Fumarate (Seroquel) 50 mg PO ONETIME ONE Stop: 01/10/19 21:01 Last Admin: 01/10/19 20:45 Dose: 50 mg Thiamine HCl (Vitamin B-1) 100 mg PO DAILY SHANTAL Stop: 01/13/19 09:01 Last Admin: 01/13/19 08:08 Dose: 100 mg Topiramate (Topamax) 25 mg PO BEDTIME ONE Stop: 01/10/19 00:50 Last Admin: 01/10/19 01:21 Dose: 25 mg - Exam General: Reports: Alert, Oriented, Cooperative, No Acute Distress HEENT: Reports: Pupils Equal, Pupils Reactive, EOMI, Mucous Membr. Moist/[place] Neck: Reports: Supple Lungs: Reports: Clear to Auscultation, Normal Respiratory Effort Cardiovascular: Reports: Regular Rate, Regular Rhythm GI/Abdominal Exam: Normal Bowel Sounds, Soft, Non-Tender, No Organomegaly, No Distention, No Abnormal Bruit, No Mass, Pelvis Stable (Male) Exam: Deferred Rectal (Males) Exam: Deferred Back Exam: Reports: Normal Inspection, Full Range of Motion Extremities: Normal Inspection, Normal Range of Motion, Non-Tender, No Pedal Edema, Normal Capillary Refill Skin: Reports: Warm, Dry, Intact Neurological: Reports: No New Focal Deficit, Normal Gait Psy/Mental Status: Reports: Alert, Normal Affect, Normal Mood
--- NOTE | 2019-01-13 12:21 | CONS ---
CONSULTING PHYSICIAN: José Miguel Gomez MD DATE OF CONSULTATION: 01/12/2019 This is a 60-minute inpatient telemedicine event. Site where the services are provided is [facility] in [place], [place]. Site where the services are provided from our office is in [facility]. Length of service for this 60-minute inpatient telemedicine event is 60 minutes. IDENTIFICATION: The patient is a 28-year-old male, who was admitted to the inpatient MICU at [facility] in [place], [place]. He is seen for psychiatric evaluation per the request of Dr. Gonzales and his treatment team. CHIEF COMPLAINT: "I had been taking in too much alcohol." HISTORY OF PRESENT ILLNESS: The patient is a 28-year-old male, who is admitted to the inpatient MICU for severe alcohol intoxication and symptoms of withdrawal and possible suicidal ideation. The patient states that he was admitted on 01/09/2019 and since that time, he has "been sleeping a lot." He states that he understands he has a drinking problem and he states a lot of times, he drinks because he is worrying all the time. He states "once I stay away from the liquor, I do start to feel better." His main issue is "I definitely like to over-think every possibility of worry all the time." He states in addition to his racing thoughts and ruminations, he gets pretty compulsive about things "especially at work" but also it appears at home that he will clean excessively. He states a lot of times "when I get home, I just hit the bottle" so he does not have to deal with his worries or his compulsive tendencies. Again, the patient is wanting to get help for his alcoholism and he states his family is supportive of this desire. The patient denies that he is suicidal or homicidal. He denies that he was ever suicidal or homicidal. He does report he was experiencing some visual hallucinations, but that is resolving now that he has been in the hospital. If he could get medications to help him with his worries and his compulsive behaviors, he would like that. MEDICATIONS: At the time of admission, none. ALLERGIES: No known drug allergies. PAST MEDICAL HISTORY: GERD. REVIEW OF SYSTEMS: Aside from GI, all other major organ systems are negative at this point in time for acute difficulties or complications. FAMILY PSYCHIATRIC AND CD HISTORY: The patient reports father had a history of alcoholism and chemical dependency issues. PAST PSYCHIATRIC AND CD HISTORY: The patient denies any previous psychiatric hospitalizations. He does report 3 chemical dependency treatments and 15 for heroin and then also from meth, but he has been sober from meth and heroin for over 4 years now. He denies any previous suicide attempts, self-injurious behaviors, or eating disorder history. Denies any past psychiatric medication history. SOCIAL HISTORY: The patient was born and raised in [place], [place] and then moved to [place] about 10 years ago for the [employer] work opportunities. He is the second of 3 siblings, having 2 brothers. The patient's biological parents were never . He did not know his biological father. He has stepfather who owned a [employer] business. Mother worked in a factory. The patient's highest level of education is a high school diploma. The patient has been x1 for 2 years. He has 1 child from the marriage. He is living in [place] with his and child. He works in maintenance at the [employer]. He denies any prior service. He is on probation from 2015 for 1 more month for cannabis possession that expires in January if he stays out of trouble. He is Christianity in terms of his marielena formation. He enjoys playing video games, outdoor sports activity, spending time with his son, and then also enjoying time with his 3 cats and Armenian Adrian. MENTAL STATUS EXAM: The patient is a 28-year-old soft-spoken white male, in no apparent distress. Speech is of regular rate and rhythm. The patient is cognitively oriented. Psychomotor activity is within normal limits. There are no abnormal motor movements or tics observed. Gait and station are not observed. The patient is seated on the side of the bed for the purposes of telemedicine consult. Mood is tired and anxious. Affect is cooperative overall for the purposes of the inpatient consult. There is no behavioral or stated evidence of acute suicidal or homicidal ideation. The patient does report some visual hallucinations that are resolving. Thought processes are organized. There are no acute manic symptoms or loose associations evident. Judgment and insight appear unimpaired at this point in time. Motivation for help is good. VITALS: 108/67, 79, 16, 97.8 degrees. IMPRESSION: Maupin I: 1. Alcohol dependence, F10.20. 2. Obsessive-compulsive disorder, F42. 3. Psychosis, not otherwise specified, currently resolving. Maupin II: None. Maupin III: History of gastroesophageal reflux disease. Maupin IV: Severe. Maupin V: 55 to 60. PLAN: 1. Discontinue one-to-one as the patient appears safe and not a danger to self or others at this point in time and he is dar for safety. 2. Sobriety. 3. AA rep to visit the patient while on unit. 4. Pastoral guidance. 5. CD consult. 6. Recommend transferring to CD treatment when the patient is medically stabilized and ready for discharge. 7. Begin trial of Anafranil 50 mg at bedtime x7 days, increase to 75 mg at bedtime thereafter to help with symptoms of OCD and mood. 8. If Anafranil is not available, we would recommend trying Luvox and if Luvox is not available, we would recommend Prozac 40 mg q.a.m. to help with symptoms of depression and OCD. 9. Recommend the patient to follow up with Outpatient Psychiatry when ready for discharge. 10.While on unit, the patient may begin Seroquel 50 mg at bedtime for clarity of thought. 11.The patient may be given Topamax 25 mg b.i.d. for seizure prophylaxis, anxiety reduction, and mood stability. 12.Folic acid supplementation. 13.Thiamine supplementation. 14.We will continue to follow up with the patient on an as-needed basis while he remains on the inpatient MICU [facility]. 15.We will follow up with the patient sooner if any complications in the interim. 16.Crisis plan is in place. CHRISTINA /[id number]
[2019-01-13 14:54] VITALS: BP 131/87
[2019-01-13] MEDS: Metoprolol Tartrate 5 MG/5 ML SDV IVPUSH PRN (15:43)
== END 2019-01-13 16:35 | disposition home or self-care (01) | DRG 897 ==
LOC: JD.ED 20:21 → EEVIPCON 01-10 00:25 → JD.ICU 01-10 00:25 → JD.MS 01-12 19:34
PROVIDERS: ADMIT Internal Medicine; ATTEND Internal Medicine
DX: F10.232 Alcohol dependence with withdrawal with perceptual disturbance (principal); R45.851 Suicidal ideations; E87.2 Acidosis; F17.210 Nicotine dependence, cigarettes, uncomplicated; F32.9 Major depressive disorder, single episode, unspecified; E87.6 Hypokalemia; K21.9 Gastro-esophageal reflux disease without esophagitis; F42.9 Obsessive-compulsive disorder, unspecified; R74.0 Nonspecific elevation of levels of transaminase and lactic acid dehydrogenase [LDH]; F10.229 Alcohol dependence with intoxication, unspecified; F41.9 Anxiety disorder, unspecified; Z87.442 Personal history of urinary calculi; Z66 Do not resuscitate
CPT/HCPCS: 36415; 51702; 71046; 71046-26; 80048; 80053; 80306; 81001; 83735; 84443; 85007; 85025; 85027; 93005; 93010; 96361; 96365; 99285; 99285-25; A9270-GY; C9113; G0480; J0360; J1170; J1200; J2060; J3411; J3475; J3490; J7030; J7040

== ENCOUNTER 2019-07-17 16:13 | Emergency (ER) | payer SELFPAY | END 2019-07-17 16:37 | disposition left against medical advice (07) | LOC: JD.ED 16:13 | DX: Z53.21 Procedure and treatment not carried out due to patient leaving prior to being seen by health care provider (principal) ==

== ENCOUNTER 2019-07-18 07:08 | Emergency (ER) | payer SELFPAY ==
[2019-07-18] MEDS ORDERED: Diphtheria,Pertussis(Acell),Tetanus Vaccine 0.5 ML Syringe IM ONE (08:20)
[2019-07-18] MEDS ORDERED: Thiamine 100 MG in Sodium Chloride 0.9% 100 ML IV ONE (08:20)
[2019-07-18] MEDS ORDERED: LORazepam 2 MG/ML SDV IVPUSH ONE ×2 (08:21→11:08)
[2019-07-18] MEDS ORDERED: Metoclopramide 10 MG/2 ML SDV IVPUSH ONE (08:21)
[2019-07-18] MEDS ORDERED: HYDROmorphone 0.5 MG/0.5 ML Syringe IVPUSH ONE (08:21)
--- NOTE | 2019-07-18 08:24 | EDM.PDOCBH ---
ED HPI GENERAL MEDICAL PROBLEM - General Chief Complaint: Behavioral/Psych Stated Complaint: DETOX Time Seen by Provider: 07/18/19 08:19 Source of Information: Reports: Patient History Limitations: Reports: No Limitations - History of Present Illness INITIAL COMMENTS - FREE TEXT/NARRATIVE: 28-year-old male presents to the ED with request to help detox from alcohol. Shouldn't enjoyed several months of sobriety but started drinking heavily vodka primarily last Sunday. He's been drinking over a fifth of vodka daily. Has had a bowel movement for about a week. Hasn't had anything solid to eat. He states he blacked out trash to his apartment don't remember what happened to him. He has abrasions to his mid forehead nose and both hands. Denies any headache. He is nauseated. Last drink was 0300 hrs. this morning which he vomited up shortly thereafter. [facility] and [facility] will accept him into care if he is sober and we have a detox program for him. Onset: Sudden Onset Date: 07/11/19 (Targeted drinking heavily again suddenly last Sunday. Had enjoyed several months of sobriety before this.) Duration: Week(s): (One week) Location: Reports: Other (Heavy alcohol use for one week continuously. Drinking over the fifth of vodka daily.) Quality: Reports: Other (Currently has diffuse aching abdominal pain and low back pain) Severity: Moderate Improves with: Reports: None Worsens with: Reports: Other Context: Reports: Other (Detoxing from alcohol.). Denies: Activity, Exercise, Lifting (22 during.), Sick Contact, Trauma Associated Symptoms: Reports: Loss of Appetite, Malaise, Nausea/Vomiting, Weakness, Other. Denies: Confusion, Chest Pain, Cough, cough w sputum, Diaphoresis, Fever/Chills, Headaches, Rash, Seizure, Shortness of Breath, Syncope Treatments STUD SETTER: Reports: Other (see below) (Low back pain none.) Generalized Pain Score (Numeric/FACES): 7 - Related Data Allergies Allergy/AdvReac Type Severity Reaction Status Date / Time No Known Allergies Allergy Verified 07/18/19 07:46 Home Meds: Home Meds Multivitamin [Multi-Vitamin Daily] 1 each PO DAILY #5 tablet 01/13/19 [Rx] Citalopram [Citalopram HBr] 10 mg PO DAILY 07/18/19 [History] LORazepam [Ativan] 1 mg PO Q4H #25 tab 07/18/19 [Rx] Ondansetron [Zofran] 4 mg BUCCAL Q6H PRN #5 tab 07/18/19 [Rx] Past Medical History - Past Health History Medical/Surgical History: Denies Medical/Surgical History Other HEENT History: gum disease, "paradontal disease." Cardiovascular History: Reports: Heart Murmur, Hypertension Gastrointestinal History: Reports: GERD Other Gastrointestinal History: stomach ulcer Genitourinary History: Reports: Renal Calculus Psychiatric History: Reports: Addiction, Anxiety, Depression Social & Family History - Family History Family Medical History: Noncontributory - Tobacco Use Smoking Status *Q: Current Every Day Smoker Years of Tobacco use: 12 Packs/Tins Daily: 0.5 Second Hand Smoke Exposure: No - Caffeine Use Caffeine Use: Reports: Coffee, Energy Drinks, Soda - Recreational Drug Use Recreational Drug Use: Yes Drug Use in Last 12 Months: Yes Recreational Drug Type: Reports: Marijuana/Hashish - Living Situation & Occupation Living situation: Reports: , with Spouse, with Family (1 child) Occupation: Unemployed ED ROS GENERAL - Review of Systems Review Of Systems: See Below Constitutional: Reports: Malaise, Weakness, Fatigue, Decreased Appetite, Weight Loss. Denies: Fever, Chills HEENT: Reports: Other (Abrasions to the bridge of his nose and mid forehead.) Respiratory: Reports: No Symptoms Cardiovascular: Reports: No Symptoms Endocrine: Reports: Fatigue GI/Abdominal: Reports: Abdominal Pain (Diffuse abdominal pain rating to his lower back.), Decreased Appetite ( ) : Reports: Other (Urine is quite dark in color.) Musculoskeletal: Reports: Back Pain, Other (Hand pain from trashing his apartment.) Skin: Reports: Other (Multiple abrasions superficial to his hands face and right thigh) Neurological: Reports: Dizziness, Headache. Denies: Confusion, Trouble Speaking , Difficulty Walking, Weakness, Change in Speech, Gait Disturbance, Other Psychiatric: Reports: Anxiety, Other Hematologic/Lymphatic: Reports: No Symptoms (Feels tremulous all over.) Immunologic: Reports: No Symptoms ED EXAM, BEHAVIORAL HEALTH - Physical Exam Exam: See Below Exam Limited By: No Limitations General Appearance: Alert, WD/WN, Mild Distress, Other (Temperature 36.4. Pulse 88 sinus respiratory distress 20. BP 11/20/ pulse ox 100.) Eye Exam: Bilateral Eye: Normal Fundi Throat/Mouth: Other Head: Atraumatic (Lips mouth and tongue are extremely dry.), Normocephalic Neck: Normal Inspection, Supple, Non-Tender, Full Range of Motion. No: Lymphadenopathy (L), Lymphadenopathy (R) Respiratory/Chest: Lungs Clear, Normal Breath Sounds (Tachypnea At rest with ketones on his breath.), No Accessory Muscle Use, Chest Non-Tender, Respiratory Distress Cardiovascular: Normal Peripheral Pulses, Regular Rate, Rhythm, No Edema, No Gallop, No Murmur, No Rub GI/Abdominal: No Organomegaly (Decreased bowel sounds. Abdomen is scaphoid without scars.), Tender (Diffusely tender particularly upper abdomen both upper outer quadrants.), Abnormal Bowel Sounds. No: Guarding, Rigid, Rebound (Male) Exam: No Hernia Back Exam: Normal Inspection, Decreased Range of Motion, Other (Diffuse low back pain. No abrasions or contusions to the back.). No: CVA Tenderness (L), CVA Tenderness (R) Extremities: Other (Has multiple superficial abrasions to both hands. Peers this is how a trash his apartment reports she has no recollection 4.) Neurological: Alert, Normal Mood/Affect, CN II-XII Intact, Normal Cognition, No Motor/Sensory Deficits, Oriented x 3 Psychiatric: Other (Anxious.) Skin Exam: Other (Superficial abrasions to the bridge of his nose in the mid forehead area. Superficial abrasions to his hands) EKG INTERPRETATION EKG Date: 07/18/19 Time: 08: Rhythm: NSR Rate (Beats/Min): 86 [place]: Normal P-Wave: Present QRS: Other (Early R-wave transition normal for age.) ST-T: Normal QT: Normal EKG Interpretation Comments: Essentially normal ECG COURSE, BEHAVIORAL HEALTH COMP - Course Vital Signs: Last Vital Signs Temp 36.8 C 07/18/19 13:12 Pulse 78 07/18/19 13:12 Resp 12 07/18/19 13:12 BP 133/77 07/18/19 13:12 Pulse Ox 98 07/18/19 13:12 Orders, Labs, Meds: Active Orders 24 hr Category Date Time Status EKG Documentation Completion [RC] STAT Care 07/18/19 08:22 Active Vaccines to be Administered [RC] PER UNIT ROUTINE Care 07/18/19 08:20 Active Dextrose 5%-0.9% NaCl [Dextrose 5%-Normal Saline] 1,000 Med 07/18/19 11:15 Active ml IV ASDIRECTED Dextrose 5%-Lactated Ringers 1,000 ml Med 07/18/19 08:30 Active IV ASDIRECTED Medication Orders Dextrose/Lactated Ringer's (Dextrose 5%-Lactated Ringers) 1,000 mls @ 999 mls/ hr IV ASDIRECTED SHANTAL Last Admin: 07/18/19 09:18 Dose: 999 mls/hr Dextrose/Sodium Chloride (Dextrose 5%-Normal Saline) 1,000 mls @ 999 mls/hr IV ASDIRECTED SHANTAL Last Admin: 07/18/19 11:15 Dose: 999 mls/hr Laboratory Tests 07/18/19 07/18/19 07/18/19 Range/Units 09:00 09:00 09:00 WBC 14.07 H (4.23-9.07) K/mm3 RBC 5.38 (4.63-6.08) M/mm3 Hgb 16.6 (13.7-17.5) gm/dl Hct 47.7 (40.1-51.0) % MCV 88.7 D (79.0-92.2) fl MCH 30.9 (25.7-32.2) pg MCHC 34.8 (32.2-35.5) g/dl RDW Std Deviation 43.0 (35.1-43.9) fL Plt Count 258 D (163-337) K/mm3 MPV 9.2 L (9.4-12.3) fl Neut % (Auto) 88.0 H (34.0-67.9) % Lymph % (Auto) 7.5 L (21.8-53.1) % Miller % (Auto) 4.1 L (5.3-12.2) % Eos % (Auto) 0 L (0.8-7.0) Baso % (Auto) 0.1 (0.1-1.2) % Neut # (Auto) 12.39 H (1.78-5.38) K/mm3 Lymph # (Auto) 1.06 L (1.32-3.57) K/mm3 Miller # (Auto) 0.57 (0.30-0.82) K/mm3 Eos # (Auto) 0.00 L (0.04-0.54) K/mm3 Baso # (Auto) 0.01 (0.01-0.08) K/mm3 Manual Slide Review Abnormal smear PT 10.4 (9.7-12.0) SECONDS INR 0.95 APTT 24 (22-31) SECONDS Sodium 136 (136-145) mEq/L Potassium 3.9 (3.5-5.1) mEq/L Chloride 99 (98-107) mEq/L Carbon Dioxide 19 L (21-32) mEq/L Anion Gap 21.9 H (5-15) BUN 18 (7-18) mg/dL Creatinine 1.0 (0.7-1.3) mg/dL Est Cr Clr Drug Dosing 137.43 mL/min Estimated GFR (MDRD) > 60 (>60) mL/min BUN/Creatinine Ratio 18.0 (14-18) Glucose 79 (74-106) mg/dL Lactic Acid (0.4-2.0) mmol/L Calcium 9.5 (8.5-10.1) mg/dL Magnesium 1.6 L (1.8-2.4) mg/dl Total Bilirubin 1.1 H (0.2-1.0) mg/dL AST 25 (15-37) U/L ALT 25 (16-63) U/L Alkaline Phosphatase 116 (46-116) U/L C-Reactive Protein < 0.2 (<1.0) mg/dL Total Protein 8.4 H (6.4-8.2) g/dl Albumin 4.6 (3.4-5.0) g/dl Globulin 3.8 gm/dL Albumin/Globulin Ratio 1.2 (1-2) Lipase 51 L (73-393) U/L Urine Color (Yellow) Urine Appearance (Clear) Urine pH (5.0-8.0) Ur Specific [place] (1.005-1.030) Urine Protein (Negative) Urine Glucose (UA) (Negative) Urine Ketones (Negative) Urine Occult Blood (Negative) Urine Nitrite (Negative) Urine Bilirubin (Negative) Urine Urobilinogen (0.2-1.0) Ur Leukocyte Esterase (Negative) Urine RBC (0-5) /hpf Urine WBC (0-5) /hpf Ur Epithelial Cells (0-5) /hpf Urine Bacteria (FEW) /hpf Fine Granular Casts (0-5) /lpf Urine Mucus (FEW) /hpf Urine Opiates Screen (TUDZOI=810) Ur Buprenorphine Scrn (CUTOFF=10) Ur Oxycodone Screen (WOE8WL=974) Urine Methadone Screen (MFE0RF=545) Ur Propoxyphene Screen (EIBXXM=944) Ur Barbiturates Screen (PFIRAJ=093) Ur Tricyclics Screen (KHSFKK=003) Ur Phencyclidine Scrn (CUTOFF=25) Ur Amphetamine Screen (RUPNYU=061) U Methamphetamines Scrn (OUXZKV=552) U Benzodiazepines Scrn (SAMUSC=749) U Cocaine Metab Screen (DXOPHR=516) U Marijuana (THC) Screen (CUTOFF=50) Ethyl Alcohol 0.03 (0.00) gm% Ketones (0.0-0.3) mM 07/18/19 07/18/19 07/18/19 Range/Units 09:00 09:00 12:28 WBC (4.23-9.07) K/mm3 RBC (4.63-6.08) M/mm3 Hgb (13.7-17.5) gm/dl Hct (40.1-51.0) % MCV (79.0-92.2) fl MCH (25.7-32.2) pg MCHC (32.2-35.5) g/dl RDW Std Deviation (35.1-43.9) fL Plt Count (163-337) K/mm3 MPV (9.4-12.3) fl Neut % (Auto) (34.0-67.9) % Lymph % (Auto) (21.8-53.1) % Miller % (Auto) (5.3-12.2) % Eos % (Auto) (0.8-7.0) Baso % (Auto) (0.1-1.2) % Neut # (Auto) (1.78-5.38) K/mm3 Lymph # (Auto) (1.32-3.57) K/mm3 [place] # (Auto) (0.30-0.82) K/mm3 Eos # (Auto) (0.04-0.54) K/mm3 Baso # (Auto) (0.01-0.08) K/mm3 Manual Slide Review PT (9.7-12.0) SECONDS INR APTT (22-31) SECONDS Sodium (136-145) mEq/L Potassium (3.5-5.1) mEq/L Chloride (98-107) mEq/L Carbon Dioxide (21-32) mEq/L Anion Gap (5-15) BUN (7-18) mg/dL Creatinine (0.7-1.3) mg/dL Est Cr Clr Drug Dosing mL/min Estimated GFR (MDRD) (>60) mL/min BUN/Creatinine Ratio (14-18) Glucose (74-106) mg/dL Lactic Acid 3.3 H (0.4-2.0) mmol/L Calcium (8.5-10.1) mg/dL Magnesium (1.8-2.4) mg/dl Total Bilirubin (0.2-1.0) mg/dL AST (15-37) U/L ALT (16-63) U/L Alkaline Phosphatase (46-116) U/L C-Reactive Protein (<1.0) mg/dL Total Protein (6.4-8.2) g/dl Albumin (3.4-5.0) g/dl Globulin gm/dL Albumin/Globulin Ratio (1-2) Lipase (73-393) U/L Urine Color Dark yellow (Yellow) Urine Appearance Clear (Clear) Urine pH 5.5 (5.0-8.0) Ur Specific [place] > or = 1.030 (1.005-1.030) Urine Protein 2+ H (Negative) Urine Glucose (UA) Trace H (Negative) Urine Ketones 4+ H (Negative) Urine Occult Blood Negative (Negative) Urine Nitrite Negative (Negative) Urine Bilirubin 1+ H (Negative) Urine Urobilinogen 0.2 (0.2-1.0) Ur Leukocyte Esterase Negative (Negative) Urine RBC 0-5 (0-5) /hpf Urine WBC 0-5 (0-5) /hpf Ur Epithelial Cells 0-5 (0-5) /hpf Urine Bacteria Few (FEW) /hpf Fine Granular Casts 0-5 (0-5) /lpf Urine Mucus Moderate H (FEW) /hpf Urine Opiates Screen (RMUIOZ=088) Ur Buprenorphine Scrn (CUTOFF=10) Ur Oxycodone Screen (WXP2FM=942) Urine Methadone Screen (EAZ0ET=410) Ur Propoxyphene Screen (PYQTHR=753) Ur Barbiturates Screen (BLISKH=671) Ur Tricyclics Screen (EZNCXH=375) Ur Phencyclidine Scrn (CUTOFF=25) Ur Amphetamine Screen (ORRKGB=933) U Methamphetamines Scrn (NNBWXV=543) U Benzodiazepines Scrn (OPAXCL=372) U Cocaine Metab Screen (THVTEH=388) U Marijuana (THC) Screen (CUTOFF=50) Ethyl Alcohol (0.00) gm% Ketones 2.48 (0.0-0.3) mM 07/18/19 Range/Units 12:28 WBC (4.23-9.07) K/mm3 RBC (4.63-6.08) M/mm3 Hgb (13.7-17.5) gm/dl Hct (40.1-51.0) % MCV (79.0-92.2) fl MCH (25.7-32.2) pg MCHC (32.2-35.5) g/dl RDW Std Deviation (35.1-43.9) fL Plt Count (163-337) K/mm3 MPV (9.4-12.3) fl Neut % (Auto) (34.0-67.9) % Lymph % (Auto) (21.8-53.1) % [place] % (Auto) (5.3-12.2) % Eos % (Auto) (0.8-7.0) Baso % (Auto) (0.1-1.2) % Neut # (Auto) (1.78-5.38) K/mm3 Lymph # (Auto) (1.32-3.57) K/mm3 [place] # (Auto) (0.30-0.82) K/mm3 Eos # (Auto) (0.04-0.54) K/mm3 Baso # (Auto) (0.01-0.08) K/mm3 Manual Slide Review PT (9.7-12.0) SECONDS INR APTT (22-31) SECONDS Sodium (136-145) mEq/L Potassium (3.5-5.1) mEq/L Chloride (98-107) mEq/L Carbon Dioxide (21-32) mEq/L Anion Gap (5-15) BUN (7-18) mg/dL Creatinine (0.7-1.3) mg/dL Est Cr Clr Drug Dosing mL/min Estimated GFR (MDRD) (>60) mL/min BUN/Creatinine Ratio (14-18) Glucose (74-106) mg/dL Lactic Acid (0.4-2.0) mmol/L Calcium (8.5-10.1) mg/dL Magnesium (1.8-2.4) mg/dl Total Bilirubin (0.2-1.0) mg/dL AST (15-37) U/L ALT (16-63) U/L Alkaline Phosphatase (46-116) U/L C-Reactive Protein (<1.0) mg/dL Total Protein (6.4-8.2) g/dl Albumin (3.4-5.0) g/dl Globulin gm/dL Albumin/Globulin Ratio (1-2) Lipase (73-393) U/L Urine Color (Yellow) Urine Appearance (Clear) Urine pH (5.0-8.0) Ur Specific [place] (1.005-1.030) Urine Protein (Negative) Urine Glucose (UA) (Negative) Urine Ketones (Negative) Urine Occult Blood (Negative) Urine Nitrite (Negative) Urine Bilirubin (Negative) Urine Urobilinogen (0.2-1.0) Ur Leukocyte Esterase (Negative) Urine RBC (0-5) /hpf Urine WBC (0-5) /hpf Ur Epithelial Cells (0-5) /hpf Urine Bacteria (FEW) /hpf Fine Granular Casts (0-5) /lpf Urine Mucus (FEW) /hpf Urine Opiates Screen Negative (PAKTRS=484) Ur Buprenorphine Scrn Negative (CUTOFF=10) Ur Oxycodone Screen Negative (FHQ9UU=828) Urine Methadone Screen Negative (OWX7WQ=508) Ur Propoxyphene Screen Negative (XXXUOB=935) Ur Barbiturates Screen Negative (OSFBGT=381) Ur Tricyclics Screen Negative (WNSKYF=579) Ur Phencyclidine Scrn Negative (CUTOFF=25) Ur Amphetamine Screen Negative (LRZBEV=553) U Methamphetamines Scrn Negative (LHHIQK=071) U Benzodiazepines Scrn Presumptive positive H (OFJIJC=472) U Cocaine Metab Screen Negative (RIXFQB=166) U Marijuana (THC) Screen Presumptive positive H (CUTOFF=50) Ethyl Alcohol (0.00) gm% Ketones (0.0-0.3) mM Medications Generic Name Dose Route Start Last Admin Trade Name Freq PRN Reason Stop Dose Admin Dextrose/Lactated Ringer's 1,000 mls @ 999 mls/hr 07/18/19 08:30 07/18/19 09: 18 Dextrose 5%-Lactated Ringers IV 999 mls/hr ASDIRECTED SHANTAL Administration Dextrose/Sodium Chloride 1,000 mls @ 999 mls/hr 07/18/19 11:15 07/18/19 11:15 Dextrose 5%-Normal Saline IV 999 mls/hr ASDIRECTED SHANTAL Administration Discontinued Medications Generic Name Dose Route Start Last Admin Trade Name Freq PRN Reason Stop Dose Admin Diphtheria/Tetanus/Acell Pertussis 0.5 ml 07/18/19 08:20 07/18/19 09:17 Adacel IM 07/18/19 08:21 0.5 ml .ONCE ONE Administration Hydromorphone HCl 0.5 mg 07/18/19 08:21 07/18/19 09:16 Dilaudid IVPUSH 07/18/19 08:22 0.5 mg ONETIME ONE Administration Thiamine HCl 100 mg/ Sodium 101 mls @ 202 mls/hr 07/18/19 08:20 07/18/19 09: 50 Chloride IV 07/18/19 08:21 202 mls/hr ONETIME ONE Administration Lorazepam 1 mg 07/18/19 08:21 07/18/19 09:12 Ativan IVPUSH 07/18/19 08:22 1 mg ONETIME ONE Administration Lorazepam 1 mg 07/18/19 11:08 07/18/19 11:13 Ativan IVPUSH 07/18/19 11:09 1 mg ONETIME ONE Administration Metoclopramide HCl 10 mg 07/18/19 08:21 07/18/19 09:14 Reglan IVPUSH 07/18/19 08:22 10 mg ONETIME ONE Administration Re-Assessment/Re-Exam: 28-year-old male presents to the ED for evaluation for medical detox. Shanna ghotra did see him yesterday and offered him treatment in the residential treatment center but he needs medical clearance examination here. Here he appears fairly ill. He will require at least a liter to of IV fluids to rehydrate him. May require reduction of his magnesium and potassium levels. Diffuse abdominal pain likely from metabolic acidosis. X-ray of the abdomen to be done since he's not had a bowel movement for a week. Tetanus toxoid will be updated today since he relates the last time was probably when he was 16. IV will be D5 Ringer's lactate at open for now. Even thiamine 100 mg IV. Ativan 1 mg IV. Dilaudid 0.5 mg IV for abdominal pain which is likely due to metabolic acidosis. Reglan 10 mg IV for nausea relief. Re-Assessment/Re-Exam Date: 07/18/19 (Labs reveal an elevated white count at 14.07. Auto differential shows 88% neutrophils. Troponin is 16.6 with hematocrit of 47.7 indicating some degree of hemoconcentration. Platelet count is normal at 2 58,000. PT is 10 point fourth and INR 0.95. PTT is 24. Lactic acid is elevated at 3.3.) Re-Assessment/Re-Exam Time: 11:01 (Differential on the white count was 88% neutrophils no bands reported. PT is 10.4 with an INR of 0.95. PTT was 24. Sodium 136 with a potassium of 3.9 chloride is 99 with a bicarbonate of 19. Anion gap is elevated at 21.9. BUN is 18. Creatinine is 1.0. GFR is greater than 60. Glucose was low at 79. Calcium is 9.5. Magnesium slightly low at 1.6. Total bilirubin 1.1. AST is 25 with an ALT of 25. Alkaline phosphatase is 116. C -reactive protein is less than 0.2. Total protein slightly elevated at 8.4 and albumin of 4.6 again suggest suggesting some degree of hemoconcentration. Serum lipase is 51. Blood alcohol was 0.03 g percent. Ketones elevated at 2.48 this explains his elevated anion gap. Patient will require another liter of IV fluids to help correct his metabolic acidosis.Will be D5 normal saline. Of note KUB is done and is essentially within normal limits. No significant constipation is evident.) Medical Clearance: 07/18/19 12:23 awaiting the patient to void so I can do a urine drug screen on him. Otherwise the information that is required by [facility] has been completed. Probable be to discharge him to residential crisis bed if one is available as the patient indicates in the areas. I will place him on egg gradual weaning dose of Ativan for the next 5 days. 07/18/19 13:17 Urine drug screen is positive for marijuana which the patient admits to intermittent use of. It also was positive for benzodiazepines which we gave the patient i.e. IV lorazepam. We will contact we will contact [facility] to see if they are not willing to accept the patient into the residential crisis center. 07/18/19 13:43 [facility] provider will attend the ED and escorted the patient to the residential crisis center. Departure - Departure Time of Disposition: 13:43 Disposition: DC/Tfer to Other 70 Condition: Fair Clinical Impression: Alcohol withdrawal syndrome without complication, Anxiety, Alcohol abuse, Superficial laceration of face Contusion of nose Qualifiers: Encounter type: initial encounter Qualified Code(s): S00.33XA - Contusion of nose, initial encounter - Discharge Information *PRESCRIPTION DRUG MONITORING PROGRAM REVIEWED*: Not Applicable *COPY OF PRESCRIPTION DRUG MONITORING REPORT IN PATIENT NASRIN: Not Applicable Prescriptions: LORazepam [Ativan] 1 mg PO Q4H #25 tab Ondansetron [Zofran] 4 mg BUCCAL Q6H PRN #5 tab PRN Reason: nausea or vomiting Instructions: Binge-Drinking Information, Adult, Recovering From Addiction Referrals: Tam Raymundo PA-C [Primary Care Provider] - Forms: ED Department Discharge Additional Instructions: Evaluation the emergency room today in regards to acute alcohol withdrawal symptoms in the early stages. Blood alcohol was 0.03 g percent. Major finding in your blood was metabolic acidosis from breaking down your fats for energy as you've not been eating for the last 3 or 4 days. This created an elevation of acid in your bloodstream causing nausea and abdominal pain and generalized weakness. This was corrected with 2 L of intravenous fluid containing sugar or dextrose. You have received 2 mg of Ativan during her stay in the ED and will need a tablet by mouth every 4 hours for the next day and a half and then one every 6 hours for the next 48 hours and then 1 tablet every 8 hours for 2 days and then 1 tablet every 12 hours for 1 day and off. This will get to through the acute alcohol withdrawal phase. Is my understanding that you will be going to the residential crisis Center for alcohol withdrawal treatment and counseling. I have also written a prescription for Zofran 4 mg under the tongue that you can take every 4-6 hours if needed for relief of any nausea that may reoccur in the next day or 2. Please try and stay hydrated with plenty of fluids such as Gatorade or Powerade - My Orders Last 24 Hours: My Active Orders 07/18/19 08:20 Vaccines to be Administered [RC] PER UNIT ROUTINE 07/18/19 08:22 EKG Documentation Completion [RC] STAT 07/18/19 08:30 Dextrose 5%-Lactated Ringers 1,000 ml IV ASDIRECTED 07/18/19 11:15 Dextrose 5%-0.9% NaCl [Dextrose 5%-Normal Saline] 1,000 ml IV ASDIRECTED - Assessment/Plan Last 24 Hours: My Active Orders 07/18/19 08:20 Vaccines to be Administered [RC] PER UNIT ROUTINE 07/18/19 08:22 EKG Documentation Completion [RC] STAT 07/18/19 08:30 Dextrose 5%-Lactated Ringers 1,000 ml IV ASDIRECTED 07/18/19 11:15 Dextrose 5%-0.9% NaCl [Dextrose 5%-Normal Saline] 1,000 ml IV ASDIRECTED
[2019-07-18] MEDS ORDERED: Dextrose 5%-Lactated Ringers 1,000 ML IV SCH (08:30)
--- NOTE | 2019-07-18 10:42 | CR ---
Abdomen: Supine view of the abdomen was obtained. Comparison: No prior abdominal x-ray. Bowel gas pattern appears normal. Visualized lung bases are clear. Bony structures appear within normal limits. Small calcification within the lower right pelvis is seen compatible with phlebolith. Impression: 1. Nothing acute is appreciated on supine abdominal x-ray. Diagnostic code #1
[2019-07-18] MEDS ORDERED: Dextrose 5%-0.9% NaCl 1,000 ML IV SCH (11:15)
[2019-07-18 13:47] VITALS: BP 134/75; PULSE 86
== END 2019-07-18 13:55 | disposition other institution (70) ==
LOC: JD.ED 07:08
DX: S01.81XA Laceration without foreign body of other part of head, initial encounter (principal); F10.230 Alcohol dependence with withdrawal, uncomplicated; F41.9 Anxiety disorder, unspecified; I10 Essential (primary) hypertension; F32.9 Major depressive disorder, single episode, unspecified; K21.9 Gastro-esophageal reflux disease without esophagitis; Y90.0 Blood alcohol level of less than 20 mg/100 ml; F17.210 Nicotine dependence, cigarettes, uncomplicated; Z79.899 Other long term (current) drug therapy; Z23 Encounter for immunization; X58.XXXA Exposure to other specified factors, initial encounter; Y92.039 Unspecified place in apartment as the place of occurrence of the external cause
CPT/HCPCS: 36415; 74018; 80053; 80306; 80320; 81001; 82009; 83605; 83690; 83735; 85025; 85610; 85730; 86140; 90471; 90700; 93005; 96361; 96365; 96375; 96376; 99285; J1170; J2060; J2765; J3411; J7030; J7042; G0480